=== PATIENT | female | born 1975 | race African-American/Black ===

== ENCOUNTER 2018-05-14 05:18 | Inpatient (IN) | payer OTHER ==
[2018-05-14 05:32] LABS: Base Excess-Venous -3.6 mmol/L (0 (+/- 2.5)); Bicarbonate (HCO3v) 23.2 mmol/L (1.0-85.0); CO2 Tension (PvCO2) 47.8 mmHg (41.0-51.0); Calcium, Ionized 1.18 mmol/L (1.12-1.32); Hemoglobin - Calc 12.9 g/dL (12.0-18.0); O2 Tension (PvO2) 76.5 mmHg (35.0-45.0); Potassium 4.1 mmol/L (3.4-4.7); T. Carbon Dioxide 24.6 mmol/L (1.0-85.0); pH (Venous) 7.294 (7.35-7.45); vO2 Saturation-calc 93.4 % (94-98)
[2018-05-14] MEDS ORDERED: fentaNYL Citrate/PF 2,000 MCG in Sodium Chloride 0.9% 60 ML IV SCH ×2 (05:50→06:22)
[2018-05-14 05:51] LABS: INR-International Normal Ratio 1.1; PTT 27.1 SEC (22.9-36.1); Prothrombin Time 13.9 SEC (12.0-14.7)
[2018-05-14 05:58] LABS: Bilirubin Negative (Negative); Blood, Urine Moderate (Negative); Clarity CLOUDY (Clear); Glucose, Urine (Dipstick) 250 mg/dL (Negative); Leukocyte Negative (Negative); Nitrite Negative (Negative); Protein, Urine (Dipstick) 300 mg/dL (Neg-Trace); Specific Gravity, Urine 1.012 (1.002-1.036)
[2018-05-14 06:01] LABS: Bacteria/HPF Rare-Few HPF (None Seen); RBC/HPF 0-3 HPF (0-3)
[2018-05-14 06:02] LABS: Pathc Cast-AUWi Flag 5.23 (0-2.49)
[2018-05-14 06:06] LABS: ALT (SGPT) 67 U/L (8-55); AST (SGOT) 82 U/L (5-34); Albumin 3.4 g/dL (3.5-5.0); Alkaline Phosphatase 104 U/L (40-150); Anion Gap 15 mmol/L (10-20); BUN (Urea Nitrogen) 17 mg/dL (7.0-18.7); Bilirubin, Total 0.4 mg/dL (0.2-1.2); Calc. Creatinine Clearance 0 mL/min (70-130); Calcium 9.2 mg/dL (7.8-10.44); Carbon Dioxide 19 mmol/L (22-29); Chloride 109 mmol/L (98-107); Estimated GFR-MDRD 38; Globulin 3.3 g/dL (2.4-3.5); Glucose 182 mg/dL (70-105); Potassium 4.2 mmol/L (3.5-5.1); Protein, Total 6.7 g/dL (6.0-8.3); Sodium 139 mmol/L (136-145)
[2018-05-14 06:08] LABS: Troponin I 0.152 ng/mL (< 0.028)
[2018-05-14 06:10] LABS: Hyaline Casts/LPF NONE SEEN LPF (0-3 Hyaline); Other Casts/LPF None Seen LPF (0-3 Hyaline)
[2018-05-14 06:14] LABS: Hemoglobin 12.4 g/dL (12.0-16.0); Mean Corpuscular HGB CONC 33.4 g/dL (32.0-36.0); Mean Corpuscular Hemoglobin 29.8 pg (27.0-31.0); Mean Corpuscular Volume 89.3 fL (78.0-98.0); Platelet Count 225 thou/uL (130-400); RBC Distribution Width 15.3 % (11.5-14.5); Red Blood Cell (RBC) Count 4.16 mill/uL (4.20-5.40); White Blood Cell (WBC) Count 13.1 thou/uL (4.8-10.8)
[2018-05-14 06:18] LABS: #Eosinphils 0.1 thou/uL (0.0-0.7); #Lymphocytes 3.3 thou/uL (1.20-3.40); #Monocytes 0.1 thou/uL (0.11-0.59); #Neutrophils 9.6 thou/uL (1.40-6.50); %Basophils 0.3 % (0.0-1.0); %Lymphocytes 24.8 % (21.0-51.0); %Monocytes 1.1 % (0.0-10.0); %Neutrophils 72.8 % (42.0-75.0)
[2018-05-14] MEDS ORDERED: Ventilator Sedation Protocol 1 EACH FS SCH (06:20)
[2018-05-14] MEDS ORDERED: Propofol BOLUS 1,000 MG/100 ML VIAL IV PRN (06:22)
[2018-05-14] MEDS ORDERED: DISCONTINUE PREVIOUS NARCOTIC PAIN MEDICATIONS AND BENZODIAZEPINES FS SCH (06:22)
[2018-05-14] MEDS ORDERED: Lorazepam 2 MG/ML VIAL SLOW IVP PRN (06:22)
[2018-05-14 06:39] LABS: Actual Bicarbonate (HCO3a) 21.6 mEq/L (22-28); Base Excess (BEa) -4.3 mEq/L (-2.0 to +3.0); Hemoglobin (Hb) 12.5 g/dL (12.0-16.0); O2 Tension (PaO2) 147.6 mmHg (80.0-100.0); pH, Arterial 7.32 (7.35-7.45)
[2018-05-14 06:40] LABS: Calcium, Ionized 1.2 mmol/L (1.12-1.30); Carboxyhemoglobin (COHb) 0.9 gm% (0.0-3.0); Potassium - ABG Lab 3.7 mmol/L (3.70-5.30); Puncture Site RRA
[2018-05-14 06:46] LABS: Acetaminophen Less than 6.0 mcg/mL (10.0-30.0); Alcohol Less than 10 mg/dL (Less than 10); Salicylate Less than 8.0 mg/dL (15.0-30.0)
[2018-05-14] MEDS ORDERED: Piperacillin/Tazobactam 4.5 GM VIAL ONE (06:50)
[2018-05-14] MEDS ORDERED: Bisacodyl 10 MG SUPP PR PRN (09:00)
[2018-05-14] MEDS ORDERED: Artificial Tears 18 DROP/0.9 ML EA EYE PRN (09:00)
[2018-05-14] MEDS ORDERED: Acetaminophen 325 MG TAB PER TUBE PRN (09:00)
[2018-05-14] MEDS ORDERED: Famotidine/PF 20 mg/2ml Vial SLOW IVP SCH (09:00)
[2018-05-14] MEDS ORDERED: Acetaminophen 650 MG Suppository PR PRN (09:00)
[2018-05-14] MEDS ORDERED: Eucerin (Mineral Oil/Petrolatum,White) 30 gm Jar TOP PRN (09:00)
[2018-05-14] MEDS ORDERED: Metoclopramide HCl 10 MG/2 ML VIAL IVP PRN (09:00)
--- NOTE | 2018-05-14 09:00 | PDOC.EVN ---
Event Note - Event Note Event Note: pt is seen and examined, see orders will dictate H & P later, echo, antibiotics, IVF, cardiology and pulomnary consult, monitor labs
[2018-05-14 09:24] LABS: Lactic Acid 1.6 mmol/L (0.5-2.2)
[2018-05-14 09:26] LABS: Troponin I 0.208 ng/mL (< 0.028)
[2018-05-14 09:39] LABS: Magnesium 2.2 mg/dL (1.6-2.6); Phosphorus 3.4 mg/dL (2.3-4.7)
--- NOTE | 2018-05-14 10:13 | RAD ---
SINGLE VIEW CHEST: Date: 05/14/18 COMPARISON: None. HISTORY: Cardiac arrest. Patient was found unresponsive. FINDINGS: Single view of the chest shows an enlarged cardiomediastinal silhouette. The endotracheal tube is see n with its tip between the clavicles. A left subclavian central venous catheter is seen with its tip in the superior vena cava. A NG tube is seen in the stomach. There is no evidence of consolidation, m ass, or pleural effusion. IMPRESSION: Cardiomegaly. POS: [facility]
--- NOTE | 2018-05-14 10:22 | CT ---
PRELIMINARY REPORT/[facility]/EMERGENTY AFTER-HOURS PROCEDURE CT Head Without Intravenous Contrast EXAM DATE/TIME: Exam ordered 05/14/2018 6:09 AM CLINICAL HISTORY: 43 years old, female; Signs and symptoms; Syncope and collapse; Patient HX: Additional history obtain ed from ems, f45 presents to ed via [facility] S/P cardiac arrest and rosc. Family reports find ing pt unresponsive while she was sitting in chair at home, exact moment of arrest unknown. Family could not wake pt prompting their call to 911. Oa, ems found pt in bed; Pt in v-tach, without pulse. Ems shocked at 200 into asystole, then performed cpr for 20 min, giving 3 rounds epi and bicarb. Pt then had cardiac activity. C-collar in place to protect airway. Family also notes they suspect seizure activity on finding pt, pt has no pmhx seizures. No additional HX provided by family . E/m caveat sun may 14, 2018 05: 30 alfonzo bonds erin emergency room caveat invoked due to intuba blair patient. TECHNIQUE: Axial computed tomography images of the head/brain without intravenous contrast. COMPARISON: No relevant prior studies available. FINDINGS: Brain: Normal. No hemorrhage. No significant white matter disease. No edema. Ventricles: Normal. No ventriculomegaly. Bones/joints: Normal. No acute fracture. Soft tissues: Normal. Sinuses: Unremarkable as visualized. No acute sinusitis. Mastoid air cells: Unremarkable as visualized. No mastoid effusion. IMPRESSION: No acute intracranial hemorrhage. Thank you for allowing us to participate in the care of your patient. Dictated and Authenticated by: Froylan Dumont MD 05/14/2018 6:42 AM Central Time ([place] & [place]) FINAL REPORT EMERGENCY AFTER HOURS CT BRAIN WITHOUT CONTRAST: Date: 05/14/18 FINDINGS/IMPRESSION: I agree with the findings and impression given in the preliminary report per [facility] physician. No evide nce of acute intracranial abnormality. POS: [facility]
[2018-05-14] MEDS: cefTRIAXone\\ROCEPHIN 1 GM in Sodium Chloride 0.9% 100 ML IVPB SCH (10:57)
--- NOTE | 2018-05-14 11:39 | HP ---
DATE OF ADMISSION: 05/14/2018 PRIMARY CARE PHYSICIAN: Unknown. REASON FOR ADMISSION: Status post cardiac arrest at home and status post resuscitation. HISTORY OF PRESENT ILLNESS: A 43-year-old female who was brought to emergency room by [facility] after cardiac arrest. The patient had successful resuscitation by paramedics. She was brought to ER . History is completely limited. We got information from ER physician that family found her unresponsive while she was seated in her chair at home. It is unclear when she was arrested. The patient was not waking up and that is why family called 911. Paramedics found her in bed. The patient was in V-tach as per paramedics without any pulse. Mimeographer shocked her at 200 joules and then she had asystole and they performed CPR for almost 20 minutes. She was given 3 rounds of epinephrine and bicarbonate. Subsequently, the patient had cardiac activity. Cervical collar was in place for airway. The patient was not able to provide any history because of intubated status. Family is also not present, so unable to get detailed family history. Apparently, some information reported that the patient has a history of hypertension only. REVIEW OF SYSTEMS: All review of systems tried to be reviewed with the patient , but unable to review at this point because of intubated status. PAST MEDICAL HISTORY: Reportedly, the patient has a history of hypertension. PAST SURGICAL HISTORY: Unable to review at this point because of intubated status. PAST PSYCHIATRIC HISTORY: Unable to review at this point because of intubated status. ALLERGIES: No known drug allergies. CURRENT HOME MEDICATIONS: Unable to obtain home medication as the patient was brought by [facility] and no medicine with her and no family is present at bedside. SOCIAL HISTORY: Unable to verify information at this point because of intubated status. FAMILY HISTORY: Unable to verify family history because of intubated status as well as no family present at bedside. EMERGENCY ROOM COURSE: The patient required central line placement. She was given vancomycin, Zosyn, fentanyl, succinylcholine and etomidate. The patient was intubated in the emergency room after arrival and subsequently she is admitted to ICU. PHYSICAL EXAMINATION: VITAL SIGNS: Currently, blood pressure 136/100, pulse 45 irregular, respiratory rate 14, saturation 100% on ventilator, temperature 96.1, weight 112.5 kg. GENERAL: The patient is currently intubated. She is on hypothermia protocol. HEAD: Normocephalic, atraumatic. EYES: Pupils are constricted, not reactive to light. No nystagmus. NECK: Supple. No JVD. LUNGS: Clear to auscultation without any rhonchi or rales on ventilator. CARDIAC: S1, S2. Appears bradyarrhythmic. Monitor showing some kind of Wenckebach phenomenon. No murmur elicited, no gallop. ABDOMEN: Obesity present. Nondistended. No organomegaly. No mass. BACK: Unremarkable. EXTREMITIES: Upper extremities, passive movement of all joints are normal. Lower extremities, passive movement of all joints are normal. No edema. Good pulsation. SKIN: No skin rash. HEMATOLOGICAL: No lymphadenopathy. NEUROLOGIC: Unable to assess at this point because of intubated status. PSYCHIATRIC: Unable to assess at this point because of intubated status. SIGNIFICANT LABORATORY DATA: EKG showing first degree AV block, nonspecific intraventricular conduction delay, nonspecific ST-T changes. CT brain based on my review, no acute cardiopulmonary process. Chest x-ray showing cardiomegaly, endotracheal tube in good place. CBC, WBC 13.1, hemoglobin 12.4, platelet 225, 000. INR 1.1. ABG, pH 7.32, CO2 43.0, O2 147, bicarbonate 21.6, saturation 98.6 on ventilator. BMP, sodium 142, potassium 4.1, chloride 110, BUN 17, creatinine 1.74, glucose 184, calcium 9.2, lactic acid 3.2. LFT, AST 82, ALT 67 , alkaline phosphatase 104, albumin 3.4, troponin 0.152 and then 0.208. BNP 125.9. Urinalysis suggestive of UTI, proteinuria, glucosuria. Serum drug screen negative. ASSESSMENT: 1. Acute cardiac arrest status post CPR and three rounds of ACLS with successful resuscitation. 2. Acute respiratory failure, intubated in the emergency room on ventilator. 3. Bradyarrhythmia, rule out complete heart block. 4. Acute kidney failure. 5. Lactic acidosis due to hypoperfusion with metabolic acidosis. 6. Abnormal liver function tests, could be part of fatty liver versus ischemia. 7. Demand ischemia of myocardium with elevated troponin. 8. Elevated BNP, rule out cardiomyopathy. 9. Urinary tract infection. 10. History of hypertension. PLAN: 1. The patient is admitted in CCU. Pulmonary group will be consulted for ventilatory management. 2. Cardiology group will be consulted for bradyarrhythmia as well as cardiac arrest. 3. We will monitor serial cardiac enzymes x3. We will obtain echocardiography to assess ejection fraction and other structural abnormality given elevated BNP. 4. We will monitor daily labs including CBC, CMP, ABG and chest x-ray while the patient is intubated. 5. Hypothermia protocol initiated for cardiac arrest. 6. Urine drug screen will be obtained and urine culture will be obtained and we will start Rocephin 1 g q.24 hours. 7. Ventilator sedation protocol initiated. We will start Pepcid 20 mg IV b.i.d. for GI prophylaxis. 8. Deep venous thrombosis prophylaxis with heparin 5000 units subcu twice daily. 9. Gastrointestinal prophylaxis with Pepcid 20 mg IV b.i.d. 10. Code status: The patient is full code. Disposition plan based on clinical course. Total time spent providing critical care to this patient is 35 minutes. MTDD
--- NOTE | 2018-05-14 12:14 | CON ---
DATE OF CONSULTATION: 05/14/2018 SERVICE: Pulmonary Medicine. REASON FOR CONSULTATION: ICU patient. HISTORY OF PRESENT ILLNESS: The patient is a 43-year-old female who was essentially found down at home. The last time she was seen was unknown. Ultimately, she was found to be pulsel ess. She underwent 20 minutes of chest compressions before spontaneous return of circulation was obt ained. She was brought to the emergency department where she was stabilized. Initial diagnostic wor kup was performed. She was subsequently tucked in the ICU. She cannot provide me any additional everardo ments of the history. The last time she was seen normal was last night. PAST MEDICAL HISTORY: Unknown. PAST SURGICAL HISTORY: Unknown. FAMILY HISTORY: Noncontributory. SOCIAL HISTORY: Unknown. ALLERGIES: No known drug allergies. MEDICATIONS: List of her inpatient medications were reviewed and modified. REVIEW OF SYSTEMS: This cannot be obtained because the patient is currently completely encephalopath ic/comatose. PHYSICAL EXAMINATION: VITAL SIGNS: Afebrile, pulse 62, blood pressure 158/103, respirations 14, saturation 98% on 40% FIO2 and a PEEP of 5. GENERAL: The patient is intubated. She is on no sedating medications and essentially nonresponsive. HEENT: Normocephalic, atraumatic. Sclerae are white. Conjunctivae pink. Oral mucosa is moist with out lesions. LUNGS: Decent air entry. Some crackles are present, but they do not predominate. There is no prolo nged expiratory phase, wheezing or rhonchi. HEART: Normal rate. Irregular. ABDOMEN: Soft, nontender, nondistended. Bowel sounds are positive. MUSCULOSKELETAL: No cyanosis or clubbing. There is no pitting in the bilateral lower extremities. NEUROLOGIC: Pupils are fixed and not moving. They are pinpoint at 2 mm. She is overbreathing the v entilator comfortably. She demonstrates myoclonic jerks. She is not withdrawing from any noxious st imuli in upper or lower extremities. She is not coughing or gagging with deep suctioning. LABORATORY DATA: WBC 13.1, hemoglobin 12.4, platelets 224,000. INR 1.1. PH 7.32, pCO2 43, pO2 147 on 60% FiO2 at that time. Creatinine 1.74. Lactic acid was 3.2, but it is clearing, AST and ALT are marginally elevated. BNP 125. Troponin 0.2. WBC greater than 50,000. Salicylate, acetaminophen a nd plasma alcohol level are all unremarkable. IMAGIN. CT of brain demonstrates no evidence of acute intracranial abnormality. 2. Chest x-ray demonstrates low lung volumes are present. There are interstitial markings that are also present. Enteric catheter courses below the level of the diaphragm into the expected region of the stomach. There is a left subclavian central venous catheter that terminates in adequate position . Cardiomegaly is present on this AP film. ASSESSMENT: 1. Acute hypoxic respiratory failure. 2. Ventricular tachycardia arrest with return of spontaneous circulation after 20 minutes of CPR. 3. Mobitz 1 heart block. 4. Anoxic brain injury. 5. Myoclonic jerking. DISCUSSION AND PLAN: We will consult Neurology. I believe these are myoclonic jerks and do not repr esent seizure activity. We will continue our supportive care. She is currently in the cooling floresita col. We will support her through the next 24-48 hours. If she fails to make any significant neurolo gic headway, we will talk to the family about transitioning over comfort care only. Pulmonary Critic al Care will continue to follow along. Multiple adjustments have been made to the ventilator in orde r to maintain comfort for the patient. CRITICAL CARE TIME: 30 minutes.
[2018-05-14 12:32] LABS: Amphetamine Not Detected (NotDetected); Barbiturates Screen Not Detected (NotDetected); Benzodiazepine Screen Not Detected (NotDetected); Cocaine Metabolite Screen Not Detected (NotDetected); Medtox Control Line Valid? VALID (VALID); Medtox Reader # READER 4; Methadone Not Detected (NotDetected); Methamphetamine Not Detected (NotDetected); Opiate Screen Not Detected (NotDetected); Oxycodone Screen Not Detected (NotDetected); Phencyclidine (PCP) Not Detected (NotDetected); THC/Cannabinoid Screen Not Detected (NotDetected); Tricyclic Screen Not Detected (NotDetected)
[2018-05-14] MEDS: Dextrose 5 %-0.45 % NaCl 1,000 ML IV SCH (13:00)
--- NOTE | 2018-05-14 13:29 | CON ---
DATE OF CONSULTATION: 05/14/2018 REASON FOR CONSULTATION: Out of hospital arrest. HISTORY OF PRESENT ILLNESS: Ms. Colón is an unfortunate 43-year-old woman who recently was found in a cardiac arrest. I discussed the case with her . He states they woke at 3:30 in the mornin g. He states he turned her alarm off. He said when he turned, she was jerking involuntarily. He tr ied to wake her up and could not. EMS was then summoned. He did not proceed with CPR at that time. He states it took approximately 10 minutes for EMS to arrive. Per the notes in the chart, she tg sotelo was found to be in VT. She was then cardioverted and progressed to asystole. CPR performed for 20 minutes. This was after no CPR was noted for 10 minutes. She was given epinephrine with a retur n of spontaneous circulation. She was then intubated and transferred to [facility]. PAST MEDICAL HISTORY: Hypertension. ALLERGIES: None. HOME MEDICATIONS: Unknown. REVIEW OF SYSTEMS: Unobtainable. PHYSICAL EXAMINATION: GENERAL: Myoclonic jerks are present. She is intubated and not sedated. VITAL SIGNS: Blood pressure 135/93, pulse 60, temperature afebrile. NEUROLOGIC: The patient is alert and oriented times 3 with no focal neurologic deficits. HEENT: Sclerae without icterus. Mouth has moist mucous membranes with normal pallor. NECK: No JVD. Carotid upstroke brisk. No bruits bilaterally. LUNGS: Clear to auscultation with unlabored respirations. BACK: No scoliosis or kyphosis. CARDIAC: Regular rate and rhythm with normal S1 and S2. No S3 or S4 noted. No significant rubs, mu rmurs, thrills, or gallops noted throughout the precordium. PMI is not displaced. There is no cecil ternal heave. ABDOMEN: Soft, nontender, nondistended. No peritoneal signs present. No hepatosplenomegaly. No ab normal striae. EXTREMITIES: 2+ femoral and 2+ dorsalis pedis pulses. No cyanosis, clubbing, or edema. SKIN: No gross abnormalities. PERTINENT LABS: Hemoglobin 12.4, creatinine 1.74, glucose 182. AST and ALT of 82/67. BNP of 125. Troponin 0.2 at 0800. IMAGING: EKG, normal sinus rhythm with nonspecific ST-T wave changes. IMPRESSION: 1. Out of hospital arrest. 2. Etiology is currently unknown. RECOMMENDATIONS: We would recommend echo with Doppler to assess LV function. Her BNP is low, which suggests no cardiomyopathy. It is unknown why she may have presented with spontaneous ventricular ta chycardia. Her 2 sets of troponins are felt to be well within the range of recent CPR. At this poin t, unfortunately her neurologic status is unlikely to recover. She had 20 minutes of CPR and 10 adriana rivka of no CPR noted prior to EMS arriving. She has myoclonic jerks without sedation. Would continue hypothermic protocol. At this point, I would not recommend an aggressive cardiac approach. I did spend 40 minutes of critical care time.
[2018-05-14] MEDS ORDERED: Succinylcholine Chloride 200 MG/10 ML VIAL ONE (13:33)
[2018-05-14 15:43] LABS: Troponin I 0.477 ng/mL (< 0.028)
[2018-05-14] MEDS ORDERED: levETIRAcetam In NaCl (Iso-Os) 1,500 MG in Premix Bag 1 BAG IVPB SCH (17:00)
[2018-05-14] MEDS: Propofol 1,000 MG/100 ML VIAL IV PRN ×3 (17:33→23:05)
[2018-05-14] MEDS: Heparin 5,000 UNITS/ML VIAL SC SCH (20:05)
--- NOTE | 2018-05-14 21:22 | CON ---
DATE OF CONSULTATION: 05/14/2018 REFERRING PROVIDER: Dr. Fausto Barnes. REASON FOR CONSULTATION: Anoxic brain injury. HISTORY OF PRESENT ILLNESS: Mr. Lambert is a 43-year-old -[place] female, who has been consulted for evaluation of possible anoxic brain injury. History is obtained from patient's who was present at bedside. report that patient was normal state of health yesterday when she woken up to go to work today. He had gone inside the bathroom at that time she had sat down on chair and was doing well, when he came out and was putting on his shoes and looked up and noticed that she was having jerking type episode. He immediately called EMS. On arrival of EMS, the patient was found to be in ventricular tachycardia. She had to be resuscitated for approximately 15-20 minutes. She was then brought to the [facility], intubated. Since she is being admitted to the hospital, she has been having continuous myoclonic type jerking of her whole body. Per nurse, she does not have pupillary reflex or corneal reflex. She does breathe over the ventilator machine, but does not have any cough or gag reflex. She has a decerebrate posturing to noxious stimuli. PAST MEDICAL HISTORY, PAST SURGICAL HISTORY, FAMILY HISTORY, SOCIAL HISTORY, CURRENT MEDICATIONS, AND ALLERGIES: Could not be obtained. REVIEW OF SYSTEMS: Could not be obtained. PHYSICAL EXAMINATION: VITAL SIGNS: Blood pressure of 146/111, pulse of 79, temperature of 97.2, respirations of 18 on mechanical ventilation. GENERAL: Intubated, mildly sedated with propofol -[place] female. RESPIRATORY: Clear to auscultation bilaterally. CARDIOVASCULAR: Regular rate and rhythm. NEUROLOGIC: Mental status: The patient is intubated and mildly sedated. She was taken off sedation during my examination. She is noted to have whole body myoclonic jerking that tends to occur every 15-20 seconds. Cranial nerves: Pupils are pinpoint and nonreactive. She has no corneal reflex on both sides. There is no cough or gag reflex present. She does breathe over the ventilator machine. Motor exam showed spastic bilateral upper and lower extremities. She has decerebrate posturing to nerve root pressure on the left. Both upper extremities, no response to nerve or pressure in both lower extremities. She has a positive Duval and Babinski on both sides. LABORATORY DATA: Reviewed, which included CBC, CMP, troponin, urinalysis, urine drug screen, which is significant for WBC of 13.1, glucose of 182. Lactic acid of 3.2, AST of 82, ALT of 67. Troponin of 0.477. Urinalysis showed greater than 50 to too numerous to count WBCs with negative nitrites and negative leukocyte esterase, otherwise unremarkable. IMAGING STUDIES: CT head without contrast was reviewed, which showed no acute intracranial abnormality per radiology report, however, in my opinion, there is a loss of betancourt white matter differentiation diffusely, although there is some motion artifact hinders the evaluation. IMPRESSION: 1. Cardiopulmonary arrest. 2. Possible anoxic brain injury. 3. Continuous myoclonic seizures/epilepticus. Ms. Eldon Lambert is a 43-year-old unfortunate -[place] female, who presented after being found down. She was resuscitated for more than 10 minutes by EMS. Since being here, she is noted to have continuous myoclonic jerking. Based on her neurological examination, she likely has a severe anoxic brain injury. I will recommend obtaining MRI brain without contrast and EEG on tomorrow morning. I will start her on Keppra 1500 mg IV loading dose followed by 500 mg b.i.d. I have discussed the findings with patient's and aunt who were present at bedside and explained that the prognosis currently is poor. I will continue to monitor and observe her neurological function and provide further recommendations as necessary. MTDD
[2018-05-14 22:06] LABS: #Eosinphils 0.1 thou/uL (0.0-0.7); #Lymphocytes 1.6 thou/uL (1.20-3.40); #Monocytes 0.8 thou/uL (0.11-0.59); #Neutrophils 11.4 thou/uL (1.40-6.50); %Basophils 0.3 % (0.0-1.0); %Eosinophils 0.6 % (0.0-10.0); %Lymphocytes 11.6 % (21.0-51.0); %Monocytes 5.4 % (0.0-10.0); %Neutrophils 82.1 % (42.0-75.0); Hemoglobin 12.6 g/dL (12.0-16.0); Mean Corpuscular HGB CONC 34.1 g/dL (32.0-36.0); Mean Corpuscular Hemoglobin 30.1 pg (27.0-31.0); Mean Corpuscular Volume 88.3 fL (78.0-98.0); Mean Platelet Volume 7.8 fL (7.4-10.4); Platelet Count 229 thou/uL (130-400); RBC Distribution Width 15.4 % (11.5-14.5); Red Blood Cell (RBC) Count 4.17 mill/uL (4.20-5.40); White Blood Cell (WBC) Count 13.9 thou/uL (4.8-10.8)
[2018-05-14 22:12] LABS: PTT 28.1 SEC (22.9-36.1); Prothrombin Time 13.7 SEC (12.0-14.7)
[2018-05-14 22:33] LABS: Anion Gap 11 mmol/L (10-20); BUN (Urea Nitrogen) 23 mg/dL (7.0-18.7); CKMB 6.9 ng/mL (0-6.6); Calc. Creatinine Clearance 59 mL/min (70-130); Calcium 8.7 mg/dL (7.8-10.44); Carbon Dioxide 22 mmol/L (22-29); Chloride 109 mmol/L (98-107); Estimated GFR-MDRD 28; Glucose 109 mg/dL (70-105); Magnesium 1.9 mg/dL (1.6-2.6); Potassium 3.1 mmol/L (3.5-5.1); Sodium 139 mmol/L (136-145); Troponin I 0.454 ng/mL (< 0.028)
[2018-05-15] MEDS: Dextrose 5 %-0.45 % NaCl 1,000 ML IV SCH ×2 (01:50→18:23)
[2018-05-15] MEDS: Propofol 1,000 MG/100 ML VIAL IV PRN ×8 (01:50→23:28)
[2018-05-15] MEDS: hydrALAZINE 20 MG/ML VIAL SLOW IVP PRN (02:49)
[2018-05-15 05:48] LABS: #Eosinphils 0.1 thou/uL (0.0-0.7); #Lymphocytes 1.4 thou/uL (1.20-3.40); #Monocytes 0.5 thou/uL (0.11-0.59); #Neutrophils 12.7 thou/uL (1.40-6.50); %Basophils 0.3 % (0.0-1.0); %Eosinophils 0.4 % (0.0-10.0); %Lymphocytes 9.4 % (21.0-51.0); %Monocytes 3.5 % (0.0-10.0); %Neutrophils 86.4 % (42.0-75.0); Hemoglobin 13.8 g/dL (12.0-16.0); Mean Corpuscular HGB CONC 33.7 g/dL (32.0-36.0); Mean Corpuscular Hemoglobin 29.4 pg (27.0-31.0); Mean Corpuscular Volume 87.3 fL (78.0-98.0); Mean Platelet Volume 8.3 fL (7.4-10.4); Platelet Count 244 thou/uL (130-400); RBC Distribution Width 15.4 % (11.5-14.5); Red Blood Cell (RBC) Count 4.69 mill/uL (4.20-5.40); White Blood Cell (WBC) Count 14.7 thou/uL (4.8-10.8)
[2018-05-15 05:53] LABS: INR-International Normal Ratio 1.1; PTT 25.4 SEC (22.9-36.1); Prothrombin Time 13.8 SEC (12.0-14.7)
[2018-05-15 05:59] LABS: Anion Gap 13 mmol/L (10-20); BUN (Urea Nitrogen) 20 mg/dL (7.0-18.7); Calc. Creatinine Clearance 60 mL/min (70-130); Calcium 8.9 mg/dL (7.8-10.44); Carbon Dioxide 20 mmol/L (22-29); Chloride 109 mmol/L (98-107); Estimated GFR-MDRD 28; Glucose 120 mg/dL (70-105); Magnesium 2.2 mg/dL (1.6-2.6); Phosphorus 3.2 mg/dL (2.3-4.7); Sodium 139 mmol/L (136-145)
[2018-05-15 06:07] LABS: Potassium 2.9 mmol/L (3.5-5.1)
[2018-05-15 06:22] LABS: ALT (SGPT) 57 U/L (8-55); AST (SGOT) 45 U/L (5-34); Albumin 3.6 g/dL (3.5-5.0); Alkaline Phosphatase 116 U/L (40-150); Anion Gap 10 mmol/L (10-20); BUN (Urea Nitrogen) 21 mg/dL (7.0-18.7); Bilirubin, Total 0.5 mg/dL (0.2-1.2); Calc. Creatinine Clearance 60 mL/min (70-130); Carbon Dioxide 22 mmol/L (22-29); Chloride 108 mmol/L (98-107); Estimated GFR-MDRD 28; Globulin 3.7 g/dL (2.4-3.5); Glucose 117 mg/dL (70-105); Protein, Total 7.3 g/dL (6.0-8.3); Sodium 137 mmol/L (136-145)
[2018-05-15 06:27] LABS: CKMB 5.1 ng/mL (0-6.6)
[2018-05-15 06:28] LABS: Potassium 2.8 mmol/L (3.5-5.1)
[2018-05-15] MEDS ORDERED: Potassium Chloride 20 MEQ in Premix Bag 1 BAG IVPB SCH (06:30)
[2018-05-15] MEDS: Famotidine/PF 20 mg/2ml Vial SLOW IVP SCH (08:05)
[2018-05-15] MEDS: Heparin 5,000 UNITS/ML VIAL SC SCH ×2 (08:05→20:40)
[2018-05-15] MEDS: cefTRIAXone\\ROCEPHIN 1 GM in Sodium Chloride 0.9% 100 ML IVPB SCH (08:05)
[2018-05-15] MEDS ORDERED: Midazolam HCl 2 mg/2 ml Vial IVP SCH (10:45)
--- NOTE | 2018-05-15 10:47 | PDOC.CTH ---
Cardiology Progress Note - Subjective No signifcnat cahnges overnight. CV status stable. BP elevated. - Objective Vital Signs Temp Pulse Resp BP 05/15/18 10:33 97 159/118 H 05/15/18 10:00 17 05/15/18 08:00 24 H 05/15/18 07:00 97.4 F L 05/15/18 06:21 75 150/116 H 05/15/18 06:00 95.9 F L 23 H 05/15/18 05:00 96 F L 05/15/18 04:00 95.8 F L 23 H 05/15/18 03:00 95.9 F L 05/15/18 02:49 75 190/125 H 05/15/18 02:00 96.2 F L 23 H 05/15/18 01:00 96 F L 05/15/18 00:00 96.4 F L 25 H 05/14/18 23:00 96.6 F L Weight 269 lb 13.533 oz 05/14/18 05/15/18 05/16/18 06:59 06:59 06:59 Intake Total 2457 100 Output Total 2900 645 Balance -443 -545 - Physical Examination Neck: carotid US brisk, no JVD present Lungs: CTA, unlabored respirations Heart: PMI normal, RRR Abdomen: no HSM, NT/ND, soft Extremities: + femoral B - Labs Result Diagrams: 05/15/18 05:15 05/15/18 05:15 Troponin/CKMB CK-MB (CK-2) 5.1 ng/mL (0-6.6) 05/15/18 05:15 Troponin I 0.330 ng/mL (< 0.028) H* 05/15/18 05:15 - Assessment/Plan Out of hopsital arrest HTN Cardiomyopathy of unknown etiology Given recent findings of low EF (new diagnosis), her event likely related to a primary cardiac event. Unfortunately, she likely has severe anoxic brain injury. No new CV recommendations at this point. If her status changes, I am happy to provide further input.
--- NOTE | 2018-05-15 12:08 | PDOC.PN ---
- Subjective Encounter Start Date: 05/15/18 Encounter Start Time: 07:00 -: old records requested/rev pt is intubated, family present bedside, - Objective MAR Reviewed: Yes Vital Signs & Weight: Vital Signs (12 hours) Temp Pulse Resp BP 05/15/18 10:33 97 159/118 H 05/15/18 10:00 17 05/15/18 08:00 24 H 05/15/18 07:00 97.4 F L 05/15/18 06:21 75 150/116 H 05/15/18 06:00 95.9 F L 23 H 05/15/18 05:00 96 F L 05/15/18 04:00 95.8 F L 23 H 05/15/18 03:00 95.9 F L 05/15/18 02:49 75 190/125 H 05/15/18 02:00 96.2 F L 23 H 05/15/18 01:00 96 F L Weight Weight 269 lb 13.533 oz Most Recent Monitor Data Heart Rate from ECG 113 NIBP 180/117 NIBP BP-Mean 140 Respiration from ECG 15 SpO2 88 I&O: 05/14/18 05/15/18 05/16/18 06:59 06:59 06:59 Intake Total 2457 100 Output Total 2900 780 Balance -443 -680 Result Diagrams: 05/15/18 05:15 05/15/18 05:15 Radiology Reviewed by me: Yes (MRI, echo, chest xray reviewed) EKG Reviewed by me: Yes (sinus tachycardia) Phys Exam - Physical Examination Constitutional: NAD intubated Neck: supple Respiratory: no wheezing, no rales, no rhonchi Cardiovascular: RRR, no significant murmur, no rub Gastrointestinal: soft, no distention, positive bowel sounds obesity+ Musculoskeletal: no edema, pulses present unable to assess Lymphatic: no nodes Deviation from normal: unable to assess Skin: no rash, normal turgor Dx/Plan (1) Abnormal LFTs Code(s): R94.5 - ABNORMAL RESULTS OF LIVER FUNCTION STUDIES Status: Acute Comment: due to likely from hypoperfusion (2) Acute kidney failure Status: Acute Comment: due to hypoperfusion (3) Acute respiratory failure with hypoxia Code(s): J96.01 - ACUTE RESPIRATORY FAILURE WITH HYPOXIA Status: Acute Comment: on ventilator (4) Bradyarrhythmia Code(s): I49.8 - OTHER SPECIFIED CARDIAC ARRHYTHMIAS Status: Acute Comment: on admission, but seems reolved (5) Cardiac arrest with successful resuscitation Code(s): I46.9 - CARDIAC ARREST, CAUSE UNSPECIFIED Status: Acute (6) Demand ischemia of myocardium Code(s): I24.8 - OTHER FORMS OF ACUTE ISCHEMIC HEART DISEASE Status: Acute (7) Hypokalemia Code(s): E87.6 - HYPOKALEMIA Status: Acute (8) Myoclonic seizure Code(s): G40.409 - OTH GENERALIZED EPILEPSY, NOT INTRACTABLE, W/O STAT EPI Status: Acute (9) UTI (urinary tract infection) Status: Acute (10) Hypertension Code(s): I10 - ESSENTIAL (PRIMARY) HYPERTENSION Status: Chronic (11) Morbid obesity with BMI of 40.0-44.9, adult Code(s): E66.01 - MORBID (SEVERE) OBESITY DUE TO EXCESS CALORIES; Z68.41 - BODY MASS INDEX (BMI) 40.0-44.9, ADULT Status: Chronic (12) Anoxic brain damage Status: Suspected - Plan cont current plan of care, plan discussed w/ family, continue antibiotics, respiratory therapy * [facility] * monitor neuro recovery * if neuro recovery evident in next few days, then cardiology will decide further plan * ventilator as per pulmonary * medication reviewed as below * symptomatic treatment * discussed with family * prognosis is guarded * supportive care. * replace potassium Review of Systems - Review of Systems Other: unable to review due to intubated status - Medications/Allergies Allergies/Adverse Reactions: Allergies Allergy/AdvReac Type Severity Reaction Status Date / Time No Known Drug Allergies Allergy Verified 05/14/18 05:50 Medications: Current Medications Acetaminophen (Tylenol) 650 mg PER TUBE Q4H PRN PRN Reason: Headache/Fever or Mild Pain Acetaminophen (Tylenol) 650 mg [place] Q4H PRN PRN Reason: Headache/Fever or Mild Pain Albuterol/Ipratropium (Duoneb) 3 ml NEB [id number] PRN PRN Reason: SOB &/or Wheezing Artificial Tears (Tears Naturale) 0 drop EA EYE PRN PRN PRN Reason: Dry Eyes Bisacodyl (Dulcolax) 10 mg [place] DAILYPRN PRN PRN Reason: Constipation Famotidine (Pepcid) 20 mg SLOW IVP DAILY COUNT INCLUDES THE [facility] Last Admin: 05/15/18 08:05 Dose: 20 mg Heparin Sodium (Porcine) (Heparin) 5,000 units SC BID COUNT INCLUDES THE [facility] Last Admin: 05/15/18 08:05 Dose: 5,000 units Hydralazine HCl (Apresoline) 10 mg SLOW IVP Q4H PRN PRN Reason: Systolic BP > 180 Last Admin: 05/15/18 02:49 Dose: 10 mg Ceftriaxone Sodium 1 gm/ (Sodium Chloride) 100 mls @ 200 mls/hr IVPB Q24HR COUNT INCLUDES THE [facility] Last Admin: 05/15/18 08:05 Dose: 100 mls Dextrose/Sodium Chloride (D5 1/2 Ns) 1,000 mls @ 75 mls/hr IV .[id number] COUNT INCLUDES THE [facility] Last Admin: 05/15/18 01:50 Dose: 1,000 mls Levetiracetam 500 mg/ Device 100 mls @ 200 mls/hr IVPB BID COUNT INCLUDES THE [facility] Last Admin: 05/15/18 08:06 Dose: 100 mls Metoclopramide HCl (Reglan) 5 mg IVP Q4H PRN PRN Reason: Nausea Midazolam HCl (Versed) 4 mg IVP NOW COUNT INCLUDES THE [facility] Stop: 05/15/18 15:00 Last Admin: 05/15/18 10:50 Dose: 4 mg Mineral Oil/White Petrolatum (Eucerin Cream) 0 gm TOP BIDPRN PRN PRN Reason: Dry Skin Pneumococcal Polyvalent Vaccine (Pneumovax 23) 0.5 ml IM .ONCE ONE Stop: 05/15/18 15:01 Propofol (Diprivan) 1,000 mg IV INF PRN; Protocol PRN Reason: TO ACHIEVE GOAL RASS Stop: 06/13/18 06:22 Last Admin: 05/15/18 11:50 Dose: 1,000 mg Propofol (Diprivan Bolus) 20 mg IV Q5MIN PRN PRN Reason: BREAKTHROUGH AGITATION Stop: 06/13/18 06:22 Rocuronium [place] (Zemuron) 50 mg IVP NOW COUNT INCLUDES THE [facility] Stop: 05/15/18 15:00 Last Admin: 05/15/18 10:50 Dose: 50 mg Sodium Chloride (Flush - Normal Saline) 10 ml IVF PRN PRN PRN Reason: Saline Flush
--- NOTE | 2018-05-15 13:04 | MRI ---
BRAIN MRI WITHOUT CONTRAST: HISTORY: Patient coded. Anoxic. Return of spontaneous circulation. Evaluate for ischemic injury. COMPARISON: None. TECHNIQUE: Brain MRI is performed without intravenous Gadolinium administration. Multisequential, multiplanar i maging was performed. FINDINGS: There are subtle areas of cortical restricted diffusion involving the left and right pre- and post-ce ntral gyri all well as bilateral occipital and parietal gyri. There is associated sulcal effacement involving the left and right occipital parietal lobs. Cortical-based infarction is favored. No definite parenchymal hemorrhage. No evidence of extraaxial hematoma. No midline shift. Basilar cisterns are patent. Brain volume is age appropriate. Central arterial flow voids are maintained. Calvarium has a normal T1 marrow signal intensity. Midline brain parenchymal structures are unremark able. There are areas of subtle restricted diffusion involving the left and right lentiform nuclei with ass ociated hypointensity on the ADV map suggesting deep betancourt matter infarction. There is also evidence of restricted diffusion involving a portion of the left caudate nucleus. IMPRESSION: Cortical as well as deep betancourt matter infarction which can be seen in Adult hypoxic brain injury. Con tinued surveillance is recommended. POS: [facility]
[2018-05-15 13:44] LABS: Potassium 2.9 mmol/L (3.5-5.1)
[2018-05-15] MEDS ORDERED: Potassium Chloride 20 MEQ TAB PO SCH (14:45)
[2018-05-15] MEDS ORDERED: Potassium Chloride 40 MEQ in Premix Bag 1 BAG IVPB SCH (14:45)
--- NOTE | 2018-05-15 16:16 | PRG ---
DATE OF SERVICE: 05/15/2018 SERVICE: Pulmonary Medicine. INTERVAL HISTORY: The patient is doing poorly from a neurologic standpoint. She started having seiz ure-like activity. As such, she was initiated on anti-seizure medications. MRI is being scheduled f or today. There has been no interval change to her condition. Oxygen requirements remain low. She is starting to have some low-grade fevers. PHYSICAL EXAMINATION: VITAL SIGNS: Previously, she was afebrile, but now she is running a temperature of 100.5, pulse 107, blood pressure 159/114, respirations 19, saturation 100% on 27% FiO2 and a PEEP of 5. GENERAL: Patient is intubated. She is on significant amounts of sedation to suppress seizure and/or myoclonic jerking-type activity. HEENT: Normocephalic, atraumatic. Sclerae are white, conjunctivae pink. Oral and nasal mucosa is m oist without lesions. LUNGS: Decent air entry. Rhonchi are present. There is no prolonged expiratory phase. Dependent c rackles are minimal. HEART: Normal rate, regular. ABDOMEN: Soft, nontender, nondistended. Bowel sounds are positive. MUSCULOSKELETAL: No cyanosis or clubbing. There is no pitting in the bilateral lower extremities. NEUROLOGIC: Grossly nonfocal. LABORATORY DATA: WBC 14.7, hemoglobin 13.8, platelets 244,000. INR 1.1. Potassium 2.9, creatinine 2.28 and roughly stable. Bicarbonate 20, chloride 109. Basic metabolic profile is, otherwise, unrem arkable. Troponin is downtrending to 0.33. AST and ALT are both downtrending. Blood cultures x4 re main unremarkable to date. IMAGING: MRI of the brain demonstrates cortical and deep betancourt matter infarction, consistent with hyp oxic brain injury. Echocardiogram demonstrates 35% ejection fraction, mild concentric left ventricul ar hypertrophy. There is also moderate aortic regurgitation identified. ASSESSMENT: 1. Acute hypoxic respiratory failure. 2. Ventricular tachycardia arrest, status post 20 minutes of out of hospital cardiopulmonary resusci tation. 3. Systolic heart failure. 4. Anoxic brain injury. 5. Myoclonic jerking and possible seizure activity. DISCUSSION AND PLAN: EEG is currently pending. For the MRI, we gave her some Versed, and preparing to give her a paralytic if required. We are going to continue supportive measures moving forward. I f we identify seizure activity, we will do our best at suppressing it. Pulmonary Critical Care will continue to follow along in this location, but it is very likely that she is going to fail to make a meaningful neurologic recovery. CRITICAL CARE TIME: 30 minutes.
[2018-05-15] MEDS: levETIRAcetam In NaCl (Iso-Os) 1,500 MG in Premix Bag 1 BAG IVPB SCH (20:40)
--- NOTE | 2018-05-15 20:59 | PRG ---
DATE OF SERVICE: 05/15/2018 SUBJECTIVE: Ms. Eldon Lambert is a 43-year-old -[place] female, who presented after having a cardiopulmonary arrest. She continues to have a generalized myoclonic activity. There has not improved with propofol, Keppra. Per nurse assisting over the patient, she has not seen any significant change in her neurological exam over the past 24 hours. PHYSICAL EXAMINATION: VITAL SIGNS: Blood pressure of 166/113, pulse of 93, respirations of 29 on mechanical ventilation, T-max of 100.5. GENERAL: Intubated, mildly sedated, -[place] female in no apparent distress. RESPIRATORY: Clear to auscultation bilaterally. CARDIOVASCULAR: Regular rate and rhythm. NEUROLOGIC: Essentially unchanged when compared to yesterday. IMAGING STUDIES: MRI brain without contrast was reviewed, which showed diffuse anoxic brain injury involving bilateral frontoparietal occipital cortex. EEG was reviewed, which was degraded by EMG artifact, it showed diffuse moderate nonspecific cerebral dysfunction without any epileptiform discharges or subtransients. ASSESSMENT AND PLAN: 1. Anoxic brain injury. 2. Cardiopulmonary arrest. Mr. Eldon Lambert is a 42-year-old -[place] female, who presented with a cardiopulmonary arrest. She had MRI brain done today, which showed severe anoxic brain injury involving bilateral posterior frontal, parietal and occipital regions. I have discussed with the patient's and explained the current findings on the MRI as well as EEG. I have explained that the prognosis is very poor given the extension of the injury noted on the MRI scan, I have explained the treatment options, which include full support, which would mean that she may have any PEG tube and tracheostomy. If they decide to withdraw care, then she may be taken off of life support and let her run its course. They understood the options and decided that they want to continue with the full support. I will increase the dose of her Keppra from 500 mg b.i.d. to 1500 mg b.i.d. I have spent more than 30 minutes of total of this visit for discussion with the family. CHENG
[2018-05-16] MEDS: Propofol 1,000 MG/100 ML VIAL IV PRN ×8 (03:13→22:55)
[2018-05-16 04:51] LABS: #Basophils 0.1 thou/uL (0.0-0.2); #Eosinphils 0.1 thou/uL (0.0-0.7); #Lymphocytes 1.6 thou/uL (1.20-3.40); #Monocytes 0.7 thou/uL (0.11-0.59); #Neutrophils 9.2 thou/uL (1.40-6.50); %Basophils 0.4 % (0.0-1.0); %Lymphocytes 13.4 % (21.0-51.0); %Monocytes 5.6 % (0.0-10.0); %Neutrophils 79.6 % (42.0-75.0); Hemoglobin 12.8 g/dL (12.0-16.0); Mean Corpuscular HGB CONC 33.1 g/dL (32.0-36.0); Mean Corpuscular Hemoglobin 29.2 pg (27.0-31.0); Mean Corpuscular Volume 88.2 fL (78.0-98.0); Mean Platelet Volume 8.4 fL (7.4-10.4); Platelet Count 228 thou/uL (130-400); RBC Distribution Width 15.4 % (11.5-14.5); White Blood Cell (WBC) Count 11.6 thou/uL (4.8-10.8)
[2018-05-16] MEDS: Dextrose 5 %-0.45 % NaCl 1,000 ML IV SCH ×2 (05:01→19:10)
[2018-05-16 05:16] LABS: ALT (SGPT) 42 U/L (8-55); AST (SGOT) 35 U/L (5-34); Albumin 3.4 g/dL (3.5-5.0); Alkaline Phosphatase 99 U/L (40-150); Anion Gap 13 mmol/L (10-20); BUN (Urea Nitrogen) 18 mg/dL (7.0-18.7); Bilirubin, Total 0.3 mg/dL (0.2-1.2); Calc. Creatinine Clearance 56 mL/min (70-130); Calcium 8.7 mg/dL (7.8-10.44); Carbon Dioxide 23 mmol/L (22-29); Chloride 108 mmol/L (98-107); Estimated GFR-MDRD 26; Globulin 3.7 g/dL (2.4-3.5); Glucose 99 mg/dL (70-105); Potassium 3.5 mmol/L (3.5-5.1); Protein, Total 7.1 g/dL (6.0-8.3); Sodium 140 mmol/L (136-145)
[2018-05-16] MEDS: levETIRAcetam In NaCl (Iso-Os) 1,500 MG in Premix Bag 1 BAG IVPB SCH ×2 (08:57→20:03)
[2018-05-16] MEDS: Famotidine/PF 20 mg/2ml Vial SLOW IVP SCH (08:58)
[2018-05-16] MEDS: Heparin 5,000 UNITS/ML VIAL SC SCH ×2 (08:58→20:03)
[2018-05-16] MEDS: cefTRIAXone\\ROCEPHIN 1 GM in Sodium Chloride 0.9% 100 ML IVPB SCH (12:00)
--- NOTE | 2018-05-16 12:53 | PDOC.PN ---
- Subjective Encounter Start Date: 05/16/18 Encounter Start Time: 09:45 Patient seen and examined. pt is on ventilator. No overnight events - Objective MAR Reviewed: Yes Vital Signs & Weight: Vital Signs (12 hours) Temp Pulse Resp BP Pulse Ox 05/16/18 12:00 30 H 05/16/18 11:00 99.7 F H 05/16/18 10:00 99.3 F 22 H 05/16/18 09:00 99.4 F 05/16/18 08:00 99.3 F 85 22 H 100 05/16/18 06:24 83 145/97 H 05/16/18 06:00 98.6 F 16 05/16/18 05:00 97.8 F 05/16/18 04:00 98.8 F 18 05/16/18 03:00 99.7 F H 05/16/18 02:34 91 150/98 H 05/16/18 02:00 99.6 F 18 Weight Admit Weight 269 lb Weight 270 lb 11.642 oz Most Recent Monitor Data Heart Rate from ECG 89 NIBP 106/91 NIBP BP-Mean 97 Respiration from ECG 23 SpO2 98 I&O: 05/15/18 05/16/18 05/17/18 06:59 06:59 06:59 Intake Total 2457 2650 Output Total 2900 3262 230 [facility] -443 -612 -230 Result Diagrams: 05/16/18 04:30 05/16/18 04:30 Radiology Reviewed by me: Yes (MRI) EKG Reviewed by me: Yes (nsr) Phys Exam - Physical Examination Constitutional: NAD on ventilator Neck: no JVD, supple Respiratory: no wheezing, no rales, no rhonchi Cardiovascular: RRR, no significant murmur, no rub Gastrointestinal: soft, no distention, positive bowel sounds Musculoskeletal: no edema, pulses present SCD+ Lymphatic: no nodes Skin: no rash, normal turgor Dx/Plan (1) Cardiac arrest with successful resuscitation Code(s): I46.9 - CARDIAC ARREST, CAUSE UNSPECIFIED Status: Acute (2) Ventricular arrhythmia Code(s): I49.9 - CARDIAC ARRHYTHMIA, UNSPECIFIED Status: Acute (3) Acute respiratory failure with hypoxia Code(s): J96.01 - ACUTE RESPIRATORY FAILURE WITH HYPOXIA Status: Acute Comment: on ventilator (4) Acute kidney failure Status: Acute Comment: due to hypoperfusion (5) Abnormal LFTs Code(s): R94.5 - ABNORMAL RESULTS OF LIVER FUNCTION STUDIES Status: Acute Comment: due to likely from hypoperfusion (6) Demand ischemia of myocardium Code(s): I24.8 - OTHER FORMS OF ACUTE ISCHEMIC HEART DISEASE Status: Acute (7) Hypokalemia Code(s): E87.6 - HYPOKALEMIA Status: Acute (8) Myoclonic seizure Code(s): G40.409 - OTH GENERALIZED EPILEPSY, NOT INTRACTABLE, W/O STAT EPI Status: Acute (9) UTI (urinary tract infection) Status: Acute (10) Hypertension Code(s): I10 - ESSENTIAL (PRIMARY) HYPERTENSION Status: Chronic (11) Morbid obesity with BMI of 40.0-44.9, adult Code(s): E66.01 - MORBID (SEVERE) OBESITY DUE TO EXCESS CALORIES; Z68.41 - BODY MASS INDEX (BMI) 40.0-44.9, ADULT Status: Chronic (12) Anoxic brain damage Status: Acute - Plan cont current plan of care * medication reviewed as below * symptomatic treatment * ventilator as per pulmonary * supportive care * she may need trach and peg if she does not recover. Review of Systems - Review of Systems Other: unable to review due to intubated status - Medications/Allergies Allergies/Adverse Reactions: Allergies Allergy/AdvReac Type Severity Reaction Status Date / Time No Known Drug Allergies Allergy Verified 05/14/18 05:50 Medications: Current Medications Acetaminophen (Tylenol) 650 mg PER TUBE Q4H PRN PRN Reason: Headache/Fever or Mild Pain Last Admin: 05/15/18 14:03 Dose: 650 mg Acetaminophen (Tylenol) 650 mg [place] Q4H PRN PRN Reason: Headache/Fever or Mild Pain Albuterol/Ipratropium (Duoneb) 3 ml NEB [id number] PRN PRN Reason: SOB &/or Wheezing Artificial Tears (Tears Naturale) 0 drop EA EYE PRN PRN PRN Reason: Dry Eyes Bisacodyl (Dulcolax) 10 mg [place] DAILYPRN PRN PRN Reason: Constipation Famotidine (Pepcid) 20 mg SLOW IVP DAILY [facility] Last Admin: 05/16/18 08:58 Dose: 20 mg Heparin Sodium (Porcine) (Heparin) 5,000 units SC BID [facility] Last Admin: 05/16/18 08:58 Dose: 5,000 units Hydralazine HCl (Apresoline) 10 mg SLOW IVP Q4H PRN PRN Reason: Systolic BP > 180 Last Admin: 05/15/18 02:49 Dose: 10 mg Ceftriaxone Sodium 1 gm/ (Sodium Chloride) 100 mls @ 200 mls/hr IVPB Q24HR [facility] Last Admin: 05/16/18 12:00 Dose: 100 mls Dextrose/Sodium Chloride (D5 1/2 Ns) 1,000 mls @ 75 mls/hr IV .[id number] [facility] Last Admin: 05/16/18 05:01 Dose: 1,000 mls Levetiracetam 1,500 mg/ Device 100 mls @ 200 mls/hr IVPB BID [facility] Last Admin: 05/16/18 08:57 Dose: 100 mls Metoclopramide HCl (Reglan) 5 mg IVP Q4H PRN PRN Reason: Nausea Mineral Oil/White Petrolatum (Eucerin Cream) 0 gm TOP BIDPRN PRN PRN Reason: Dry Skin Propofol (Diprivan) 1,000 mg IV INF PRN; Protocol PRN Reason: TO ACHIEVE GOAL RASS Stop: 06/13/18 06:22 Last Admin: 05/16/18 11:26 Dose: 1,000 mg Propofol (Diprivan Bolus) 20 mg IV Q5MIN PRN PRN Reason: BREAKTHROUGH AGITATION Stop: 06/13/18 06:22 Sodium Chloride (Flush - Normal Saline) 10 ml IVF PRN PRN PRN Reason: Saline Flush
[2018-05-17] MEDS: Propofol 1,000 MG/100 ML VIAL IV PRN ×7 (01:17→22:30)
--- NOTE | 2018-05-17 01:50 | PRG ---
DATE OF SERVICE: 05/16/2018 SERVICE: Pulmonary Medicine. INTERVAL HISTORY: The patient is doing fine from a respiratory standpoint. That being said, neurolo gically, things are quite terrible. She had an EEG yesterday. Preliminary results suggest that we a re not dealing with any type of seizure activity. These are primarily myoclonic jerks. MRI was revi ewed and does not look good. It appears that she has had severe anoxic brain injury. Otherwise, no interval change has occurred t o her condition. She is not really responding well to her environment. We discontinued the propofol . Almost immediately, she started having continuous tremulous activity from head to toe, which did n ot appear like seizures. I had a conversation with the family today. I talked to them about either transitioning over to comfort care only in the morning or moving forward with tracheostomy and PEG tu be placement. They are suggesting that she would not want to live in the current condition, but thin k that tomorrow would be too soon. As such, they would like until before they move forward with a decision in one direction or the other. PHYSICAL EXAMINATION: VITAL SIGNS: Afebrile, pulse 89, blood pressure 160/122, respirations 23, saturation 97% on 28% FiO2 and a PEEP of 5. GENERAL: The patient is intubated. She is under the influence of some sedating medications primaril y to suppress the jerking activity. HEENT: Normocephalic, atraumatic. Sclerae are white. Conjunctivae are pink. Oral mucosa is moist without lesions. LUNGS: Decent air entry. There is rhonchi present. No prolonged expiratory phase or wheezing appre ciated. HEART: Normal rate, regular. ABDOMEN: Soft, nontender, nondistended. Bowel sounds are positive. MUSCULOSKELETAL: No cyanosis or clubbing. There is no pitting in the bilateral lower extremities. NEUROLOGIC: Grossly nonfocal. LABORATORY DATA: WBC 11.6, hemoglobin 12.8, platelets 228,000. Potassium 3.5. Creatinine 2.46. Ba sic metabolic profile is otherwise unremarkable. Liver function study also unremarkable. Troponin i s down trending to 0.330. Urinalysis is positive for greater than 50 white blood cells. Urine drug screen is negative. Blood cultures x6 are unremarkable. ASSESSMENT: 1. Acute hypoxic respiratory failure. 2. Ventricular tachycardia arrest, status post 20 minutes of out of hospital CPR. 3. Systolic heart failure. 4. Anoxic brain injury. 5. Myoclonic jerking without any seizure activity. PLAN: We will continue to support the patient for the next 24 hours. Fevers were likely neurogenic and do not require any additional blood cultures. Pulmonary Critical Care will continue to follow al stephanie in this location. I made several adjustments to the ventilator in order to decrease her dr arevalo. In 48 hours, I will talk to family about how to proceed. My suspicion is they are leaning towa rds comfort care only based on what the is suggesting, but multiple family members have opini ons that may contradict this. CRITICAL CARE TIME: 30 minutes.
[2018-05-17] MEDS: hydrALAZINE 20 MG/ML VIAL SLOW IVP PRN (02:28)
[2018-05-17 03:40] LABS: #Basophils 0.1 thou/uL (0.0-0.2); #Eosinphils 0.1 thou/uL (0.0-0.7); #Lymphocytes 1.6 thou/uL (1.20-3.40); #Monocytes 0.6 thou/uL (0.11-0.59); #Neutrophils 7.6 thou/uL (1.40-6.50); %Basophils 0.7 % (0.0-1.0); %Eosinophils 1.5 % (0.0-10.0); %Lymphocytes 16.3 % (21.0-51.0); %Neutrophils 75.5 % (42.0-75.0); Hemoglobin 12.2 g/dL (12.0-16.0); Mean Corpuscular HGB CONC 32.5 g/dL (32.0-36.0); Mean Corpuscular Hemoglobin 28.7 pg (27.0-31.0); Mean Corpuscular Volume 88.5 fL (78.0-98.0); Mean Platelet Volume 8.3 fL (7.4-10.4); Platelet Count 218 thou/uL (130-400); RBC Distribution Width 15.4 % (11.5-14.5); Red Blood Cell (RBC) Count 4.26 mill/uL (4.20-5.40)
[2018-05-17 04:04] LABS: ALT (SGPT) 28 U/L (8-55); AST (SGOT) 33 U/L (5-34); Albumin 3.3 g/dL (3.5-5.0); Alkaline Phosphatase 96 U/L (40-150); Anion Gap 13 mmol/L (10-20); BUN (Urea Nitrogen) 17 mg/dL (7.0-18.7); Bilirubin, Total 0.3 mg/dL (0.2-1.2); Calc. Creatinine Clearance 60 mL/min (70-130); Calcium 8.8 mg/dL (7.8-10.44); Carbon Dioxide 24 mmol/L (22-29); Chloride 105 mmol/L (98-107); Estimated GFR-MDRD 28; Globulin 3.9 g/dL (2.4-3.5); Glucose 103 mg/dL (70-105); Potassium 3.1 mmol/L (3.5-5.1); Protein, Total 7.2 g/dL (6.0-8.3); Sodium 139 mmol/L (136-145)
[2018-05-17] MEDS: Famotidine/PF 20 mg/2ml Vial SLOW IVP SCH (08:11)
[2018-05-17] MEDS: cefTRIAXone\\ROCEPHIN 1 GM in Sodium Chloride 0.9% 100 ML IVPB SCH (08:14)
[2018-05-17] MEDS: levETIRAcetam In NaCl (Iso-Os) 1,500 MG in Premix Bag 1 BAG IVPB SCH ×2 (08:17→21:00)
[2018-05-17] MEDS: Heparin 5,000 UNITS/ML VIAL SC SCH ×2 (08:22→21:00)
[2018-05-17] MEDS: Labetalol HCl 100 MG/20 ML VIAL SLOW IVP PRN ×4 (08:55→17:13)
--- NOTE | 2018-05-17 12:34 | PDOC.PN ---
- Subjective Encounter Start Date: 05/17/18 Encounter Start Time: 09:40 Patient seen and examined. when sedation kept off, she started having myoclonic jerks, No overnight events - Objective MAR Reviewed: Yes Vital Signs & Weight: Vital Signs (12 hours) Temp Pulse Resp BP Pulse Ox 05/17/18 11:59 93 173/117 H 05/17/18 10:46 93 150/100 H 05/17/18 10:00 13 05/17/18 09:15 102 H 05/17/18 08:55 102 H 05/17/18 08:00 98.6 F 102 H 17 99 05/17/18 07:00 98.6 F 05/17/18 06:55 112 H 178/128 H 05/17/18 06:00 17 05/17/18 04:00 17 05/17/18 02:28 93 207/133 H 05/17/18 02:10 91 05/17/18 02:00 17 Weight Admit Weight 269 lb Weight 270 lb 11.642 oz Most Recent Monitor Data Heart Rate from ECG 83 NIBP 151/108 NIBP BP-Mean 136 Respiration from ECG 27 SpO2 95 I&O: 05/16/18 05/17/18 05/18/18 06:59 06:59 06:59 Intake Total 2650 2695 100 Output Total 3262 1855 505 Balance -612 840 -405 Result Diagrams: 05/17/18 03:10 05/17/18 03:10 EKG Reviewed by me: Yes (nsr) Phys Exam - Physical Examination Constitutional: NAD intubated Neck: no JVD, supple Respiratory: no wheezing, no rales, no rhonchi Cardiovascular: RRR, no significant murmur, no rub Gastrointestinal: soft, no distention, positive bowel sounds Musculoskeletal: no edema, pulses present scd+ Skin: normal turgor Dx/Plan (1) Acute respiratory failure with hypoxia Code(s): J96.01 - ACUTE RESPIRATORY FAILURE WITH HYPOXIA Status: Acute Comment: on ventilator (2) Acute kidney failure Status: Acute Comment: due to hypoperfusion (3) Abnormal LFTs Code(s): R94.5 - ABNORMAL RESULTS OF LIVER FUNCTION STUDIES Status: Acute Comment: due to likely from hypoperfusion (4) Cardiac arrest with successful resuscitation Code(s): I46.9 - CARDIAC ARREST, CAUSE UNSPECIFIED Status: Acute (5) Demand ischemia of myocardium Code(s): I24.8 - OTHER FORMS OF ACUTE ISCHEMIC HEART DISEASE Status: Acute (6) Hypokalemia Code(s): E87.6 - HYPOKALEMIA Status: Acute (7) Myoclonic seizure Code(s): G40.409 - OTH GENERALIZED EPILEPSY, NOT INTRACTABLE, W/O STAT EPI Status: Acute (8) UTI (urinary tract infection) Status: Acute (9) Hypertension Code(s): I10 - ESSENTIAL (PRIMARY) HYPERTENSION Status: Chronic (10) Morbid obesity with BMI of 40.0-44.9, adult Code(s): E66.01 - MORBID (SEVERE) OBESITY DUE TO EXCESS CALORIES; Z68.41 - BODY MASS INDEX (BMI) 40.0-44.9, ADULT Status: Chronic (11) Anoxic brain damage Status: Acute - Plan cont current plan of care * continue vent management as per pulmonary * family will decide tomorrow about their decision regarding treatment plan, ? withdrawl of care or Trach and PEG * her prognosis is very poor * chances of survival is unlikely * medication reviewed as below * symptomatic treatment. Review of Systems - Review of Systems Other: unable to review due to intubated status - Medications/Allergies Allergies/Adverse Reactions: Allergies Allergy/AdvReac Type Severity Reaction Status Date / Time No Known Drug Allergies Allergy Verified 05/14/18 05:50 Medications: Current Medications Acetaminophen (Tylenol) 650 mg PER TUBE Q4H PRN PRN Reason: Headache/Fever or Mild Pain Last Admin: 05/15/18 14:03 Dose: 650 mg Acetaminophen (Tylenol) 650 mg [place] Q4H PRN PRN Reason: Headache/Fever or Mild Pain Albuterol/Ipratropium (Duoneb) 3 ml NEB [id number] PRN PRN Reason: SOB &/or Wheezing Artificial Tears (Tears Naturale) 0 drop EA EYE PRN PRN PRN Reason: Dry Eyes Bisacodyl (Dulcolax) 10 mg [place] DAILYPRN PRN PRN Reason: Constipation Famotidine (Pepcid) 20 mg SLOW IVP DAILY [facility] Last Admin: 05/17/18 08:11 Dose: 20 mg Heparin Sodium (Porcine) (Heparin) 5,000 units SC BID [facility] Last Admin: 05/17/18 08:22 Dose: 5,000 units Hydralazine HCl (Apresoline) 10 mg SLOW IVP Q4H PRN PRN Reason: Systolic BP > 180 Last Admin: 05/17/18 02:28 Dose: 10 mg Ceftriaxone Sodium 1 gm/ (Sodium Chloride) 100 mls @ 200 mls/hr IVPB Q24HR [facility] Last Admin: 05/17/18 08:14 Dose: 100 mls Dextrose/Sodium Chloride (D5 1/2 Ns) 1,000 mls @ 75 mls/hr IV .[id number] [facility] Last Admin: 05/16/18 19:10 Dose: 1,000 mls Levetiracetam 1,500 mg/ Device 100 mls @ 200 mls/hr IVPB BID [facility] Last Admin: 05/17/18 08:17 Dose: 100 mls Labetalol HCl (Normodyne) 20 mg SLOW IVP Q15MIN PRN PRN Reason: BLOOD PRESSURE Last Admin: 05/17/18 11:59 Dose: 20 mg Metoclopramide HCl (Reglan) 5 mg IVP Q4H PRN PRN Reason: Nausea Mineral Oil/White Petrolatum (Eucerin Cream) 0 gm TOP BIDPRN PRN PRN Reason: Dry Skin Propofol (Diprivan) 1,000 mg IV INF PRN; Protocol PRN Reason: TO ACHIEVE GOAL RASS Stop: 06/13/18 06:22 Last Admin: 05/17/18 10:46 Dose: 1,000 mg Propofol (Diprivan Bolus) 20 mg IV Q5MIN PRN PRN Reason: BREAKTHROUGH AGITATION Stop: 06/13/18 06:22 Sodium Chloride (Flush - Normal Saline) 10 ml IVF PRN PRN PRN Reason: Saline Flush
[2018-05-17] MEDS: Dextrose 5 %-0.45 % NaCl 1,000 ML IV SCH ×2 (13:39→21:00)
[2018-05-17] MEDS ORDERED: Carvedilol 6.25 MG TAB PO SCH (15:15)
--- NOTE | 2018-05-17 15:29 | PRG ---
DATE OF SERVICE: 05/17/2018 SERVICE: Pulmonary Medicine. INTERVAL HISTORY: The patient is doing very poorly from a neurologic standpoint. Her lungs are fine. She is on room air. Her kidney injury is improving. Everything else is essentially settling down. She remains a little bit tachycardic, particularly when we hold sedation. She is also hypertensive. Outside of this, there were no events overnight. Whenever sedation is held, she starts having uncontrollable jerking from head to toe. PHYSICAL EXAMINATION: VITAL SIGNS: Afebrile, pulse 94, blood pressure 174/127, respirations 27, saturation 98% on room air. GENERAL: Patient is awake and alert, in no apparent distress. LUNGS: Decent air entry. There is no prolonged expiratory phase, wheezing, rhonchi, or crackles present. HEART: Tachycardic, regular. ABDOMEN: Soft, nontender, nondistended. Bowel sounds are positive. MUSCULOSKELETAL: No cyanosis or clubbing. There is no pitting in the bilateral lower extremities. NEUROLOGIC: Her pupils go from 4 mm to 2 mm with light. She is overbreathing the ventilator comfortably. This is with significant amounts of sedation on board. She is not withdrawing to any noxious stimuli. She is not posturing. She demonstrates a very coarse tremor from head to toe which was previously not demonstrated to represent seizure activity. LABORATORY DATA: Blood cultures x6 were all unremarkable. ASSESSMENT: 1. Acute hypoxic respiratory failure, resolved. 2. Ventricular tachycardia arrest, status post 20 minutes out of hospital CPR. 3. Acute systolic heart failure. 4. Anoxic brain injury. 5. Severe myoclonic jerking without seizure activity on EEG. PLAN: We will continue supportive care. The patient's family is requesting that we get a second opinion from Neurology. Family would like the patient to be transferred to [place]. We are going to work on arranging a facility that will accept in her current condition. I will provide her with p.r.n. doses of labetalol in order to improve blood pressure control. Critical care time: 30 minutes. MTDD
[2018-05-17] MEDS: Carvedilol 6.25 MG TAB PO SCH (16:55)
[2018-05-18] MEDS: Propofol 1,000 MG/100 ML VIAL IV PRN ×7 (04:11→23:01)
[2018-05-18 04:54] LABS: #Basophils 0.1 thou/uL (0.0-0.2); #Eosinphils 0.4 thou/uL (0.0-0.7); #Lymphocytes 1.9 thou/uL (1.20-3.40); #Monocytes 0.5 thou/uL (0.11-0.59); #Neutrophils 4.7 thou/uL (1.40-6.50); %Basophils 0.7 % (0.0-1.0); %Eosinophils 5.9 % (0.0-10.0); %Lymphocytes 25.1 % (21.0-51.0); %Monocytes 6.1 % (0.0-10.0); %Neutrophils 62.2 % (42.0-75.0); Hemoglobin 11.6 g/dL (12.0-16.0); Mean Corpuscular HGB CONC 33.7 g/dL (32.0-36.0); Mean Corpuscular Hemoglobin 29.7 pg (27.0-31.0); Mean Corpuscular Volume 88.1 fL (78.0-98.0); Mean Platelet Volume 8.1 fL (7.4-10.4); Platelet Count 219 thou/uL (130-400); RBC Distribution Width 15.3 % (11.5-14.5); Red Blood Cell (RBC) Count 3.91 mill/uL (4.20-5.40); White Blood Cell (WBC) Count 7.6 thou/uL (4.8-10.8)
[2018-05-18 05:06] LABS: ALT (SGPT) 23 U/L (8-55); AST (SGOT) 29 U/L (5-34); Alkaline Phosphatase 86 U/L (40-150); Anion Gap 13 mmol/L (10-20); BUN (Urea Nitrogen) 16 mg/dL (7.0-18.7); Bilirubin, Total 0.3 mg/dL (0.2-1.2); Calc. Creatinine Clearance 60 mL/min (70-130); Calcium 8.3 mg/dL (7.8-10.44); Carbon Dioxide 26 mmol/L (22-29); Chloride 105 mmol/L (98-107); Estimated GFR-MDRD 28; Globulin 3.4 g/dL (2.4-3.5); Glucose 107 mg/dL (70-105); Protein, Total 6.4 g/dL (6.0-8.3); Sodium 141 mmol/L (136-145)
[2018-05-18] MEDS: Labetalol HCl 100 MG/20 ML VIAL SLOW IVP PRN ×3 (06:33→17:35)
[2018-05-18] MEDS: Heparin 5,000 UNITS/ML VIAL SC SCH ×2 (09:06→21:03)
[2018-05-18] MEDS: Carvedilol 6.25 MG TAB PO SCH ×2 (09:06→16:44)
[2018-05-18] MEDS: Famotidine 20 MG TAB PER TUBE SCH (09:06)
[2018-05-18] MEDS: cefTRIAXone\\ROCEPHIN 1 GM in Sodium Chloride 0.9% 100 ML IVPB SCH (09:12)
[2018-05-18] MEDS: levETIRAcetam In NaCl (Iso-Os) 1,500 MG in Premix Bag 1 BAG IVPB SCH ×2 (09:13→21:03)
[2018-05-18] MEDS: Dextrose 5 %-0.45 % NaCl 1,000 ML IV SCH ×3 (09:16→23:01)
--- NOTE | 2018-05-18 10:25 | PDOC.PN ---
- Subjective Encounter Start Date: 05/18/18 Encounter Start Time: 09:40 Patient seen and examined. No overnight events, pt is on ventilator and sedated hypertensive today - Objective MAR Reviewed: Yes Vital Signs & Weight: Vital Signs (12 hours) Pulse Resp BP 05/18/18 09:06 167/110 H 05/18/18 07:04 76 125/96 H 05/18/18 06:33 87 189/124 H 05/18/18 06:00 18 05/18/18 04:00 21 H 05/18/18 02:07 78 142/105 H 05/18/18 02:00 13 05/18/18 00:00 13 Weight Admit Weight 269 lb Weight 269 lb 2.951 oz Most Recent Monitor Data Heart Rate from ECG 76 NIBP 124/87 NIBP BP-Mean 98 Respiration from ECG 13 SpO2 100 I&O: 05/17/18 05/18/18 05/19/18 06:59 06:59 06:59 Intake Total 2695 2774 Output Total 1855 3555 125 Balance 840 -781 -125 Result Diagrams: 05/18/18 04:45 05/18/18 04:45 EKG Reviewed by me: Yes (nsr) Phys Exam - Physical Examination Constitutional: NAD on ventilator, sedated HEENT: sclera anicteric pupil pin point not reactive Neck: no JVD, supple Respiratory: no wheezing, no rales, no rhonchi Cardiovascular: RRR, no significant murmur, no rub Gastrointestinal: soft, no distention, positive bowel sounds obesity+ Musculoskeletal: no edema, pulses present SCD+, garcia+ unable to assess Lymphatic: no nodes Deviation from normal: unable to assess Skin: normal turgor Dx/Plan (1) Acute respiratory failure with hypoxia Code(s): J96.01 - ACUTE RESPIRATORY FAILURE WITH HYPOXIA Status: Acute Comment: on ventilator (2) Acute kidney failure Status: Acute Comment: due to hypoperfusion (3) Abnormal LFTs Code(s): R94.5 - ABNORMAL RESULTS OF LIVER FUNCTION STUDIES Status: Acute Comment: due to likely from hypoperfusion (4) Cardiac arrest with successful resuscitation Code(s): I46.9 - CARDIAC ARREST, CAUSE UNSPECIFIED Status: Acute (5) Demand ischemia of myocardium Code(s): I24.8 - OTHER FORMS OF ACUTE ISCHEMIC HEART DISEASE Status: Acute (6) Hypokalemia Code(s): E87.6 - HYPOKALEMIA Status: Acute (7) Myoclonic seizure Code(s): G40.409 - OTH GENERALIZED EPILEPSY, NOT INTRACTABLE, W/O STAT EPI Status: Acute (8) UTI (urinary tract infection) Status: Acute (9) Hypertension Code(s): I10 - ESSENTIAL (PRIMARY) HYPERTENSION Status: Chronic (10) Morbid obesity with BMI of 40.0-44.9, adult Code(s): E66.01 - MORBID (SEVERE) OBESITY DUE TO EXCESS CALORIES; Z68.41 - BODY MASS INDEX (BMI) 40.0-44.9, ADULT Status: Chronic (11) Anoxic brain damage Status: Acute - Plan cont current plan of care * currently on gentle IVF * continue coreg and titrate up as tolerated * vent as per pulmonary * so far pt has not shown any improvement * medication reviewed as below * symptomatic treatment * continue Keppra * prognosis is guarded. Review of Systems - Review of Systems Other: unable to review due to intubated status - Medications/Allergies Allergies/Adverse Reactions: Allergies Allergy/AdvReac Type Severity Reaction Status Date / Time No Known Drug Allergies Allergy Verified 05/14/18 05:50 Medications: Current Medications Acetaminophen (Tylenol) 650 mg PER TUBE Q4H PRN PRN Reason: Headache/Fever or Mild Pain Last Admin: 05/15/18 14:03 Dose: 650 mg Acetaminophen (Tylenol) 650 mg IN Q4H PRN PRN Reason: Headache/Fever or Mild Pain Albuterol/Ipratropium (Duoneb) 3 ml NEB [id number] PRN PRN Reason: SOB &/or Wheezing Artificial Tears (Tears Naturale) 0 drop EA EYE PRN PRN PRN Reason: Dry Eyes Bisacodyl (Dulcolax) 10 mg IN DAILYPRN PRN PRN Reason: Constipation Carvedilol (Coreg) 6.25 mg PO BID[facility] Last Admin: 05/18/18 09:06 Dose: 6.25 mg Famotidine (Pepcid) 20 mg PER TUBE DAILY [facility] Last Admin: 05/18/18 09:06 Dose: 20 mg Heparin Sodium (Porcine) (Heparin) 5,000 units SC BID [facility] Last Admin: 05/18/18 09:06 Dose: 5,000 units Hydralazine HCl (Apresoline) 10 mg SLOW IVP Q4H PRN PRN Reason: Systolic BP > 180 Last Admin: 05/17/18 02:28 Dose: 10 mg Ceftriaxone Sodium 1 gm/ (Sodium Chloride) 100 mls @ 200 mls/hr IVPB Q24HR [facility] Last Admin: 05/18/18 09:12 Dose: 100 mls Dextrose/Sodium Chloride (D5 1/2 Ns) 1,000 mls @ 75 mls/hr IV .[id number] [facility] Last Admin: 05/18/18 09:16 Dose: 1,000 mls Levetiracetam 1,500 mg/ Device 100 mls @ 200 mls/hr IVPB BID [facility] Last Admin: 05/18/18 09:13 Dose: 100 mls Labetalol HCl (Normodyne) 20 mg SLOW IVP Q15MIN PRN PRN Reason: BLOOD PRESSURE Last Admin: 05/18/18 06:33 Dose: 20 mg Metoclopramide HCl (Reglan) 5 mg IVP Q4H PRN PRN Reason: Nausea Mineral Oil/White Petrolatum (Eucerin Cream) 0 gm TOP BIDPRN PRN PRN Reason: Dry Skin Propofol (Diprivan) 1,000 mg IV INF PRN; Protocol PRN Reason: TO ACHIEVE GOAL RASS Stop: 06/13/18 06:22 Last Admin: 05/18/18 06:21 Dose: 1,000 mg Propofol (Diprivan Bolus) 20 mg IV Q5MIN PRN PRN Reason: BREAKTHROUGH AGITATION Stop: 06/13/18 06:22 Sodium Chloride (Flush - Normal Saline) 10 ml IVF PRN PRN PRN Reason: Saline Flush
[2018-05-18] MEDS ORDERED: Potassium Chloride 40 MEQ in Premix Bag 1 BAG IVPB SCH (16:30)
--- NOTE | 2018-05-18 17:17 | PRG ---
DATE OF SERVICE: 05/18/2018 SERVICE: Pulmonary Medicine. INTERVAL HISTORY: The patient is doing poorly from a neurologic standpoint. Respiratory hernandez, thing s are fantastic. That being said, whenever we hold sedation, she goes back into the jerking movement and becomes extraordinarily tachypneic. With decreasing amounts of propofol, we are able to control the activity. Otherwise, she cannot provide any additional elements of the history. Nursing report s no overnight events. We are working on getting the patient transitioned to a different hospital fo r another neurologic opinion. PHYSICAL EXAMINATION: VITAL SIGNS: Afebrile, pulse 84, blood pressure 139/100, respirations 24, saturation 99% on 21% FiO2 and a PEEP of 5. GENERAL: The patient is intubated. She is under the influence of sedating medications primarily to suppress her jerking activity. HEENT: Normocephalic, atraumatic. Sclerae are white. Conjunctivae are pink. Oral mucosa is moist without lesions. LUNGS: Decent air entry. There is no prolonged expiratory phase, wheezing, rhonchi or crackles. HEART: Normal rate, regular. ABDOMEN: Soft, nontender, nondistended. Bowel sounds are positive. MUSCULOSKELETAL: No cyanosis or clubbing. There is no pitting in the bilateral lower extremities. NEUROLOGIC: Pupils are equal, round and reactive to light. She is overbreathing the ventilator comf ortably. She does not close her eyes to confrontation or corneal reflex. Doll's eyes are normal for the most part. She has absolutely no withdrawal to noxious stimuli in the bilateral upper or lower extremities. She does not respond in a meaningful way to trapezius squeeze. LABORATORY DATA: WBC 7.6, hemoglobin 11.6, platelets 219,000. Potassium 3.0. Basic metabolic profi le is otherwise unremarkable except for a stable creatinine of 2.3. Liver function studies are other hernandez unremarkable. Multiple blood cultures are negative to date. ASSESSMENT: 1. Acute hypoxic respiratory failure, resolved. 2. Ventricular tachycardia arrest, status post 20 minutes of out of hospital CPR with return of spon taneous circulation. 3. Acute systolic heart failure. 4. Acute kidney injury, possibly superimposed on chronic kidney disease. 5. Anoxic brain injury. 6. Severe myoclonic jerking without seizure activity. DISCUSSION AND PLAN: I will replace the potassium today. We are going to repeat the EEG. At this t trisha, it is going to be under the influence of propofol as there was so much EMG activity that it was difficult to identify the background rhythm. That being said, we do not believe seizure activity is occurring. Even if it was at this point, that would portend a very poor prognosis. We have updated the family at bedside. The gives me the indication that he would really kind of like to santiago sition over to comfort care, though he has multiple relatives that have weighed in and ultimately, th e family has decided to try to pursue a second opinion. We were doing what we can to facilitate this .
[2018-05-19] MEDS: Propofol 1,000 MG/100 ML VIAL IV PRN ×7 (02:16→21:46)
[2018-05-19 04:58] LABS: #Basophils 0.1 thou/uL (0.0-0.2); #Eosinphils 0.5 thou/uL (0.0-0.7); #Lymphocytes 1.4 thou/uL (1.20-3.40); #Monocytes 0.6 thou/uL (0.11-0.59); #Neutrophils 4.3 thou/uL (1.40-6.50); %Basophils 0.8 % (0.0-1.0); %Eosinophils 7.7 % (0.0-10.0); %Lymphocytes 20.8 % (21.0-51.0); %Monocytes 8.4 % (0.0-10.0); %Neutrophils 62.3 % (42.0-75.0); Hemoglobin 11.2 g/dL (12.0-16.0); Mean Corpuscular HGB CONC 33.5 g/dL (32.0-36.0); Mean Corpuscular Hemoglobin 29.5 pg (27.0-31.0); Mean Corpuscular Volume 88.1 fL (78.0-98.0); Mean Platelet Volume 7.9 fL (7.4-10.4); Platelet Count 209 thou/uL (130-400); RBC Distribution Width 15.3 % (11.5-14.5); Red Blood Cell (RBC) Count 3.81 mill/uL (4.20-5.40); White Blood Cell (WBC) Count 6.9 thou/uL (4.8-10.8)
[2018-05-19 05:24] LABS: ALT (SGPT) 45 U/L (8-55); AST (SGOT) 55 U/L (5-34); Albumin 2.9 g/dL (3.5-5.0); Alkaline Phosphatase 93 U/L (40-150); Anion Gap 13 mmol/L (10-20); BUN (Urea Nitrogen) 17 mg/dL (7.0-18.7); Bilirubin, Total 0.3 mg/dL (0.2-1.2); Calc. Creatinine Clearance 70 mL/min (70-130); Calcium 8.4 mg/dL (7.8-10.44); Carbon Dioxide 24 mmol/L (22-29); Chloride 108 mmol/L (98-107); Estimated GFR-MDRD 33; Globulin 3.4 g/dL (2.4-3.5); Glucose 116 mg/dL (70-105); Magnesium 2.2 mg/dL (1.6-2.6); Potassium 3.6 mmol/L (3.5-5.1); Protein, Total 6.3 g/dL (6.0-8.3); Sodium 141 mmol/L (136-145)
[2018-05-19] MEDS: Dextrose 5 %-0.45 % NaCl 1,000 ML IV SCH (05:35)
[2018-05-19] MEDS: Famotidine 20 MG TAB PER TUBE SCH (09:13)
[2018-05-19] MEDS: Carvedilol 6.25 MG TAB PO SCH ×2 (09:14→17:38)
[2018-05-19] MEDS: Heparin 5,000 UNITS/ML VIAL SC SCH (09:15)
[2018-05-19] MEDS: levETIRAcetam In NaCl (Iso-Os) 1,500 MG in Premix Bag 1 BAG IVPB SCH ×2 (09:32→21:45)
[2018-05-19] MEDS: Labetalol HCl 100 MG/20 ML VIAL SLOW IVP PRN ×2 (09:38→21:10)
--- NOTE | 2018-05-19 13:15 | EEG ---
Referring Physician: Layo DOMINGUEZ EEG # [id number] TEST TYPE: ROUTINE PORTABLE INPATIENT REPORT: AN EEG USING THE INTERNATIONAL TEN-TWENTY SYSTEM OF ELECTRODE PLACEMENT WAS PERFORMED. The best background rhythm is a 5-7 hertz theta frequency. No sleep was seen. No epileptiform features were noted. The patient was intubated and sedated. Sedation was turned off last portion of the test resulting in severe EMG artifact which obscured most of the recording. No obvious epileptiform activity was noted during this time. IMPRESSION: THIS IS AN ABNORMAL EEG FOR THE FINDING OF MODERATE DIFFUSE SLOWING CONSISTENT WITH A DIFFUSE ENCEPHALOPATHIC PROCESS. THERE IS NO EVIDENCE OF EPILEPTIFORM ACTIVITY. Delinquent Notice Machine Operator: ARGENIS Mental Health Assistant: EEG.MSSalazar ANAND
[2018-05-19 13:19] VITALS: BMI 42.3
--- NOTE | 2018-05-19 14:58 | EKG ---
Test Reason : Blood Pressure : / mmHG Vent. Rate : 106 BPM Atrial Rate : 106 BPM P-R Int : 188 ms QRS Dur : 110 ms QT Int : 362 ms P-R-T Axes : 038 -37 105 degrees QTc Int : 480 ms Sinus tachycardia Possible Left atrial enlargement Left axis deviation Left ventricular hypertrophy with repolarization abnormality Abnormal ECG When compared with ECG of 14-MAY-2018 05:27, (Unconfirmed) AL interval has decreased Vent. rate has increased BY 45 BPM Nonspecific T wave abnormality no longer evident in Inferior leads Inverted T waves have replaced nonspecific T wave abnormality in Lateral leads Confirmed by JOANNA ARRIAGA MD ([id number]) on 05/19/2018 2:58:13 PM Referred By: ROSEANNA Confirmed By:JOANNA ARRIAGA MD
--- NOTE | 2018-05-19 18:12 | PDOC.PN ---
- Subjective Encounter Start Date: 05/19/18 Encounter Start Time: 09:00 -: non-verbal Patient seen and examined for Cardiac arrest s/p CPR. On [facility] Vent. No new complaints. No overnight events - Objective MAR Reviewed: Yes Vital Signs & Weight: Vital Signs (12 hours) Temp Pulse Resp BP Pulse Ox 05/19/18 17:38 137/102 H 05/19/18 16:38 80 139/96 H 05/19/18 16:00 13 05/19/18 14:00 16 05/19/18 13:53 73 131/91 H 05/19/18 12:00 13 05/19/18 10:41 70 147/104 H 05/19/18 10:40 100 05/19/18 10:00 14 05/19/18 09:38 79 172/134 H 05/19/18 09:14 181/120 H 05/19/18 08:00 97.7 F 77 17 99 05/19/18 07:08 75 145/94 H Weight Admit Weight 269 lb Weight 270 lb 8.115 oz Most Recent Monitor Data Heart Rate from ECG 80 NIBP 137/102 NIBP BP-Mean 114 Respiration from ECG 13 SpO2 100 I&O: 05/18/18 05/19/18 05/20/18 06:59 06:59 06:59 Intake Total 2774 3628 1881 Output Total 3555 2120 1535 Balance -781 1508 346 Result Diagrams: 05/19/18 04:39 05/19/18 04:39 EKG Reviewed by me: Yes (Tele SR) Phys Exam - Physical Examination Constitutional: NAD Gen muscle jerking Respiratory: no wheezing B/L rhonchi Cardiovascular: RRR, no rub Gastrointestinal: soft, positive bowel sounds Dx/Plan - Plan DVT proph w/SCDs IMPRESSION: 1. s/p OOH - Cardiac arrest requiring CPR 2. New onset CHF / Acute hypoxic resp failure 3. SHANE/Hypokalemia/Lactic acidosi 4. Morbid obesity BMI 42 5. Elevated troponins 6. Other issues per previous notes PLAN: Cont supportive care Cont AEDs Cont Coreg No ACEI/ARB/Aldactone due to SHANE AM labs DVT/GI prophylaxis Review of Systems - Review of Systems Other: Cannot obtain due to current mentation - Medications/Allergies Allergies/Adverse Reactions: Allergies Allergy/AdvReac Type Severity Reaction Status Date / Time No Known Drug Allergies Allergy Verified 05/14/18 05:50 Medications: Current Medications Acetaminophen (Tylenol) 650 mg PER TUBE Q4H PRN PRN Reason: Headache/Fever or Mild Pain Last Admin: 05/15/18 14:03 Dose: 650 mg Acetaminophen (Tylenol) 650 mg [place] Q4H PRN PRN Reason: Headache/Fever or Mild Pain Artificial Tears (Tears Naturale) 0 drop EA EYE PRN PRN PRN Reason: Dry Eyes Bisacodyl (Dulcolax) 10 mg [place] DAILYPRN PRN PRN Reason: Constipation Carvedilol (Coreg) 6.25 mg PO BID-[facility] Last Admin: 05/19/18 17:38 Dose: 6.25 mg Famotidine (Pepcid) 20 mg PER TUBE DAILY [facility] Last Admin: 05/19/18 09:13 Dose: 20 mg Hydralazine HCl (Apresoline) 10 mg SLOW IVP Q4H PRN PRN Reason: Systolic BP > 180 Last Admin: 05/17/18 02:28 Dose: 10 mg Levetiracetam 1,500 mg/ Device 100 mls @ 200 mls/hr IVPB BID [facility] Last Admin: 05/19/18 09:32 Dose: 100 mls Labetalol HCl (Normodyne) 20 mg SLOW IVP Q15MIN PRN PRN Reason: BLOOD PRESSURE Last Admin: 05/19/18 09:38 Dose: 20 mg Lorazepam (Ativan) 2 mg SLOW IVP Q15MIN PRN PRN Reason: Anxiety/Agitation Mineral Oil/White Petrolatum (Eucerin Cream) 0 gm TOP BIDPRN PRN PRN Reason: Dry Skin Morphine Sulfate (Morphine) 2 mg SLOW IVP Q15MIN PRN PRN Reason: shortness of breath Propofol (Diprivan) 1,000 mg IV INF PRN; Protocol PRN Reason: TO ACHIEVE GOAL RASS Stop: 06/13/18 06:22 Last Admin: 05/19/18 15:15 Dose: 1,000 mg Propofol (Diprivan Bolus) 20 mg IV Q5MIN PRN PRN Reason: BREAKTHROUGH AGITATION Stop: 06/13/18 06:22 Sodium Chloride (Flush - Normal Saline) 10 ml IVF PRN PRN PRN Reason: Saline Flush
--- NOTE | 2018-05-19 18:49 | PRG ---
DATE OF SERVICE: 05/19/2018 SERVICE: Pulmonary Medicine. INTERVAL HISTORY: The patient is doing poorly from a neurologic standpoint. Respiratory hernandez, things are not terrible. She is on 21% FiO2 with a PEEP of 5. She cannot provide any additional elements of the history. On a sedation holiday today, she continues to have the jerking episodes. PHYSICAL EXAMINATION: VITAL SIGNS: Afebrile, pulse 76, blood pressure 154/99, respirations 19, saturation 95% on 21% FiO2 and a PEEP of 5. HEENT: Normocephalic, atraumatic. Sclerae are white, conjunctivae pink. Oral and nasal mucosa is moist without lesions. LUNGS: Decent air entry. There is no prolonged expiratory phase, wheezing, rhonchi or crackles. HEART: Normal rate, regular. ABDOMEN: Soft, nontender, nondistended. Bowel sounds are positive. MUSCULOSKELETAL: No cyanosis or clubbing. There is no pitting in the bilateral lower extremities. NEUROLOGIC: Pupils are equal, round, and reactive. Today, they measure about 6 mm 4 mm. She is overbreathing the ventilator quite comfortably. That being said, she does not have a cough or gag. Her Doll's eyes are appropriate. She continues to have a generalized tremor. The best way I can describe it appears as she has total body clonus, that is essentially continuous. That being said, EEG both on sedation and off of sedation that both suggest that this is not consistent with seizure activity. She does not withdraw from noxious stimuli in all 4 extremities. She does posture. LABORATORY DATA: WBC 6.9, hemoglobin 11.2, platelets 209,000. Basic metabolic profile is essentially unremarkable. Creatinine 1.98. Liver function studies are unremarkable as well. Urinalysis is unremarkable. Urine drug screen is also unremarkable. Multiple blood cultures are negative to date. IMAGING: EEG once again demonstrates no evidence of seizure activity. There is diffuse slowing. ASSESSMENT: 1. Acute hypoxic respiratory failure, resolved. 2. Ventricular tachycardia arrest, status post 20 minutes out of hospital CPR with return of spontaneous circulation. 3. Anoxic brain injury, severe. 4. Acute systolic heart failure. 5. Acute kidney injury, resolved. DISCUSSION AND PLAN: The patient has been in the hospital under supportive care for about 5 days now. Over these last 5 days, she has made absolutely no neurologic improvement. As such, it is most likely that the patient will live in a permanently debilitated/vegetative state. We are going to talk to the family about whether or not they want to proceed with comfort care only and extubate the patient, or whether they would prefer to pursue PEG and tracheostomy and have the patient sent to a long-term care facility that can manage these types of individuals. A second opinion is pending. Attempts were made to getting her to a different facility, but unfortunately, insurance constraints prevented that transfer. Dr. Palmira Mclain and additional neurologist were both requested to review the case. Pulmonary Critical Care will continue to follow along. If the family so desires, we will transition to comfort care in the morning. Critical care time: 30 minutes. CHENG
[2018-05-20] MEDS: Propofol 1,000 MG/100 ML VIAL IV PRN ×2 (01:47→07:00)
[2018-05-20] MEDS: Labetalol HCl 100 MG/20 ML VIAL SLOW IVP PRN ×2 (01:48→14:43)
[2018-05-20] MEDS ORDERED: Amlodipine 10 MG TAB PER TUBE SCH (09:00)
--- NOTE | 2018-05-20 09:27 | PDOC.PN ---
- Subjective Encounter Start Date: 05/20/18 Encounter Start Time: 09:25 Ms. Colón was seen today in follow-up of acute cardiac arrest. she is intubated , She will respond to pain, but not much else. - Objective Resuscitation Status: Resuscitation Status DNR:Do Not Resuscitate MAR Reviewed: Yes Vital Signs & Weight: Vital Signs (12 hours) Pulse Resp BP Pulse Ox 05/20/18 07:03 73 169/113 H 05/20/18 06:00 7 L 05/20/18 04:00 12 05/20/18 02:31 72 100 05/20/18 02:00 13 05/20/18 01:48 78 168/95 H 05/20/18 00:00 8 L 05/19/18 23:28 78 168/95 H 05/19/18 22:00 10 L Weight Admit Weight 269 lb Weight 270 lb 8.115 oz Most Recent Monitor Data Heart Rate from ECG 75 NIBP 204/134 NIBP BP-Mean 145 Respiration from ECG 20 SpO2 98 I&O: 05/19/18 05/20/18 05/21/18 06:59 06:59 06:59 Intake Total 3628 3290.8 Output Total 2120 1998 125 Balance 1508 1292.8 -125 Result Diagrams: 05/19/18 04:39 05/19/18 04:39 Phys Exam - Physical Examination HEENT: PERRLA Respiratory: no wheezing, no rales, no rhonchi, clear to auscultation bilateral Cardiovascular: RRR, no significant murmur, no rub Gastrointestinal: soft, non-tender, positive bowel sounds Musculoskeletal: edema present trace pedal edema pupils reactive Dx/Plan (1) Acute respiratory failure with hypoxia Code(s): J96.01 - ACUTE RESPIRATORY FAILURE WITH HYPOXIA Status: Acute Comment: on ventilator (2) Anoxic brain damage Status: Acute (3) Cardiac arrest with successful resuscitation Code(s): I46.9 - CARDIAC ARREST, CAUSE UNSPECIFIED Status: Acute (4) Ventricular arrhythmia Code(s): I49.9 - CARDIAC ARRHYTHMIA, UNSPECIFIED Status: Acute (5) Hypertension Code(s): I10 - ESSENTIAL (PRIMARY) HYPERTENSION Status: Chronic - Plan * Patient seen and chart reviewed. Patient was found down by family after a sudden cardiac arrest. she was resuscitated, and brought to the Hospital. She was found to have a cardiomyopathy, and it is felt this was due to a primary Cardiac event. Unfortunately she has suffered severe anoxic brain injury, and hope for recovery is minimal. Several Family meeting have been held, and it is my understanding that they plan to terminally extubate. * HTN- blood pressure has been labile- continue Coreg, and will start Clonidine and Amlodipine back * Seizures vs. Myoclonic jerks- continue Domi
[2018-05-20] MEDS: Carvedilol 6.25 MG TAB PO SCH ×2 (09:34→17:12)
[2018-05-20] MEDS: cloNIDine 0.1 MG TAB PER TUBE SCH ×3 (09:34→20:03)
[2018-05-20] MEDS: levETIRAcetam In NaCl (Iso-Os) 1,500 MG in Premix Bag 1 BAG IVPB SCH ×2 (09:34→20:03)
[2018-05-20] MEDS: Famotidine 20 MG TAB PER TUBE SCH (09:35)
--- NOTE | 2018-05-20 12:23 | PRG ---
DATE OF SERVICE: 05/20/2018 SUBJECTIVE: This morning, she remains intubated on the vent, encephalopathic, severe anoxic injury. She has been made a DNR, comfort measures to be done today. OBJECTIVE: VITAL SIGNS: Blood pressure is elevated at 169/113, pulse 73, temperature is 96, and respirations ar e about 20. CHEST: Decreased breath sounds, no wheezing. CARDIAC: Normal S1 and S2, no gallops. ABDOMEN: Soft, no masses. IMPRESSION: 1. Status post cardiopulmonary arrest, secondary to ventricular tachycardia. 2. Anoxic brain injury. PLAN: As per family's wishes, she will be extubated today. Comfort measures thereafter. She will be made a DNR, as per the family's wishes. [id number] critical care time.
[2018-05-20] MEDS: Lorazepam 2 MG/ML VIAL SLOW IVP PRN ×4 (14:10→18:05)
[2018-05-21 00:06] VITALS: BP 116/78; TEMP 99
--- NOTE | 2018-05-22 14:53 | DS ---
DATE OF ADMISSION: 05/14/2018 DATE OF : 05/20/2018 DIAGNOSES: Include acute respiratory failure with hypoxemia, acute systolic heart failure, ventricular arrhythmia, hypertensive urgency and anoxic brain injury. PROCEDURES DONE DURING ADMISSION: The patient had an echocardiogram and it revealed an ejection fraction of 35%-40% as well as mild concentric left ventricular hypertrophy. MRI of the brain demonstrated subtle areas of cortical restriction diffusion involving the left and right pre- and post- central gyri which can be seen in anoxic brain injury. CT scan of the brain which was negative for any acute intracranial process and an EEG, which was consistent with anoxic encephalopathy. HOSPITAL COURSE: Ms. Colón is a 43-year-old female who was brought to the emergency room by air transport after she suffered a cardiac arrest. The patient's family found her unresponsive while she was seated in a chair at home. It was unclear when she rested and it was also unclear how long she was down. The patient was found to be in ventricular tachycardia by the paramedics. She was shocked and CPR was performed. She was given several rounds of epinephrine and bicarbonate and was transported to facility. She was intubated in the field. She remained hospitalized for several days in our facility. She remained virtually unresponsive during this time. Echocardiogram was done which demonstrated systolic heart failure which had been previously unknown by the patient and it is suspected that this is what caused the ventricular arrhythmia. It is reported that the patient had a history of hypertension which had not been controlled over the years. It is possible this led to her heart failure. The patient was suspected of having an anoxic brain injury and was evaluated by Cardiology as well as Neurology and Pulmonology. EEG was done which confirmed the presence of the severe anoxic brain injury. The family elected to remove the patient from life support and she subsequently shortly thereafter. CHENG
--- NOTE | 2018-05-26 14:06 | EEG ---
Referring Physician: DR. FELICIA FINN EEG # [id number] TEST TYPE: PORTABLE INPATIENT REASON FOR EEG: DECREASED LEVEL OF RESPONSIVENESS, ANOXIC BRAIN INJURY DATE OF EEG BEING DONE: 05/15/18 EEG DESCRIPTION: This is a 21 channel digital EEG recording. Electrodes are placed using the international 10-20 electrode placement system. The background rhythm is predominately 4-5 hertz, low to medium voltage Theta rhythm. There is also 2-3 hertz, low to medium voltage, intermittent, diffuse Delta rhythm. There is also 14-20 hertz low amplitude, intermittent, diffuse Beta rhythm. There is abundant EMG activity. There are no epileptiform discharges, sharp transients or asymmetry noted. IMPRESSION: THIS IS AN ABNORMAL EEG. IT SHOWS MODERATE NONSPECIFIC CEREBRAL DYSFUNCTION. HOWEVER, THERE ARE NO EPILEPTIFORM DISCHARGES, SHARP TRANSIENTS OR ASYMMETRY NOTED. THIS WOULD BE CONSISTENT WITH THE PATIENT'S UNDERLYING TOXIC-METABOLIC ENCEPHALOPATHY. THIS CAN ALSO BE SEEN IN PATIENTS WITH ANOXIC ENCEPHALOPATHY. Inside Barrel Polisher: ARGENIS Lace Roller Operator: EEG.FITO ANAND
== END 2018-05-20 23:58 | disposition expired | DRG 308 ==
LOC: EDBD 05:18 → ERS 05:18 → CCU 07:18 → T4-A 05-20 21:09
PROVIDERS: ADMIT Hospitalist; ATTEND Hospitalist
PROC: 0BH17EZ Insertion of Endotracheal Airway into Trachea, Via Natural or Artificial Opening (ICD-10-PCS; principal; 2018-05-14)
PROC: 5A1955Z Respiratory Ventilation, Greater than 96 Consecutive Hours (ICD-10-PCS; 2018-05-14)
DX: I47.0 Re-entry ventricular arrhythmia (principal); G93.40 Encephalopathy, unspecified; J96.01 Acute respiratory failure with hypoxia; I50.21 Acute systolic (congestive) heart failure; N17.9 Acute kidney failure, unspecified; E87.2 Acidosis; I24.8 Other forms of acute ischemic heart disease; N39.0 Urinary tract infection, site not specified; G93.1 Anoxic brain damage, not elsewhere classified; Z68.41 Body mass index [BMI] 40.0-44.9, adult; I47.2 Ventricular tachycardia; Z66 Do not resuscitate; I11.0 Hypertensive heart disease with heart failure; G40.401 Other generalized epilepsy and epileptic syndromes, not intractable, with status epilepticus; I44.1 Atrioventricular block, second degree; E87.6 Hypokalemia; E66.01 Morbid (severe) obesity due to excess calories; I16.0 Hypertensive urgency; I46.2 Cardiac arrest due to underlying cardiac condition
CPT/HCPCS: 31500; 36415; 36556; 51702; 70450; 70551; 71045; 80053; 80306; 80307; 81003; 81015; 82330; 82553; 82803; 82805; 83605; 83735; 83880; 84100; 84478; 84484; 85025; 85610; 85730; 87040; 90471; 90732; 93005; 93010; 93306; 94002; 94003; 95816; 95819; 96374; A4216; G0009; J0330; J0360; J0696; J1644; J1953; J2060; J2250; J2270; J2543; J2704; J3010; J3370; J3480; J7050; S0028